=== PATIENT | male | born 1950 | race Caucasian/White ===

== ENCOUNTER → 2018-06-10 09:22 | Outpatient (CLI) | payer MEDICARE, SELFPAY | PROVIDERS: PCP Internal Medicine; Visit Provider Internal Medicine | DX: I20.9 Angina pectoris, unspecified (principal) | CPT/HCPCS: 93005 ==

== ENCOUNTER → 2018-06-14 12:14 | Outpatient (CLI) | payer MEDICARE, SELFPAY ==
--- NOTE | 2018-06-14 12:16 | CI_ITS ---
Cerebrovascular Exam Indications: 785.9 Bruit. IMPRESSIONS 1. Theleft vertebral arteryis patent with normal antegrade flow. 2. Study suggests less than 20% stenosis involving the right internal carotid artery and the left internal carotid artery. 3. Study suggests occlusion involving the right vertebral artery. 4. Study suggests >60% stenosis involving the right external carotid artery. Carotid duplex study. Complete study and Doppler flow study including spectral analysis, color and painter scale imaging. Height: Height: 180.3cm. Height: 71in. Weight: Weight: 94.3kg. Weight: 207.6lb. Body mass index: BMI: 29kg/m^2. Body surface area: BSA: 2.19m^2. Location: Vascular laboratory. Patient status: Outpatient. Tables: Arterial flow: + +--------+--------+ Location V sys V ed + +--------+--------+ Right CCA - proximal 75cm/s 26.5cm/s + +--------+--------+ Right CCA - distal 62.9cm/s 24.8cm/s + +--------+--------+ Right ECA 334cm/s -------- + +--------+--------+ Right ICA - proximal 82.1cm/s 20.1cm/s + +--------+--------+ Right ICA - mid 76.8cm/s 29.7cm/s + +--------+--------+ Right ICA - distal 70.7cm/s 33.2cm/s + +--------+--------+ Left CCA - proximal 97.6cm/s 29.8cm/s + +--------+--------+ Left CCA - distal 88.2cm/s 32cm/s + +--------+--------+ Left ECA 128cm/s -------- + +--------+--------+ Left ICA - proximal 72cm/s 31.9cm/s + +--------+--------+ Left ICA - mid 93cm/s 40.2cm/s + +--------+--------+ Left ICA - distal 73.3cm/s 32.7cm/s + +--------+--------+ Left vertebral 56.8cm/s -------- + +--------+--------+ Velocity ratios: + + + + + + Right, V sys Right, V ed Left, V sys Left, V ed + + + + + + Max ICA/dist CCA 1.31 1.34 1.05 1.26 + + + + + + (Report amended ) Electronically signed by: Vaibhav De La Fuente [id number]
== END ==
PROVIDERS: PCP Internal Medicine; Visit Provider Internal Medicine
DX: R09.89 Other specified symptoms and signs involving the circulatory and respiratory systems (principal)
CPT/HCPCS: 93880

== ENCOUNTER 2018-07-04 10:33 | Outpatient (RCR) | payer MEDICARE, SELFPAY | END 2018-07-04 10:34 | disposition home or self-care (01) | LOC: PT 10:33 | PROVIDERS: Family Provider Internal Medicine; PCP Internal Medicine; Visit Provider Internal Medicine | DX: Z95.5 Presence of coronary angioplasty implant and graft (principal) | CPT/HCPCS: 93798 ==

== ENCOUNTER → 2018-09-30 10:04 | Outpatient (CLI) | payer MEDICARE, SELFPAY ==
--- NOTE | 2018-09-30 10:06 | CA_ITS ---
PROCEDURE: 2-D M-mode and color Doppler study INDICATIONS FOR THE TEST: Chest pain COPD Heart Murmur Tobacco Smoking Palpitations Fatigue Syncope Edema Hypertension+Diabetes Mellitus Rheumatic Fever SOB LUND Obesity Hyperlipidemia+ Family History HD Additional History CAD,stents, carotid stenosis PATIENT INFORMATION HEIGHT: 71 WEIGHT:211 GENDER: Male B/P:125/79 2-D/M-MODE INTERPRETATION: 2-D MEASUREMENTS OBSERVED VALUES IN CMS Right Ventricular Dimension (RVDd) 2.2 Interventricular Septum (Thickness)(IVsd) 1.0 Left Ventricular Internal Dimensions(LVIDd) 4.8 Left Ventricular Posterior Wall (Thickness)(LVPWd) 1.0 Aortic Root 3.0 Aortic Cusp Separation 1.7 Left Atrial Dimensions (LAD) 3.6 2D 1. Left atrium is mildly enlarged, left ventricle is normal size, mild qualitative concentric left ventricular hypertrophy, visually estimated ejection fraction 55% with no regional wall motion abnormality. 2. The right atrium and right ventricle are normal size and contractility. 3. The aortic valve is minimally thickened and fibrosed. 4. The mitral and tricuspid valvular grossly normal. 5. The pulmonic valve is poorly visualized. 6. No significant pericardial effusion noted. DOPPLER INTERROGATION: Doppler interrogation of the aortic, mitral and tricuspid valvular presence of mild mitral and tricuspid regurgitation, tricuspid regurgitation jet velocity is inadequate for calculation of the right ventricular systolic pressure, grade 1 diastolic dysfunction seen without tissue Doppler evidence of raised left atrial pressure. CONCLUSION: 1. Mildly enlarged left atrium, normal left ventricular size, mild concentric left ventricular hypertrophy, visually estimated ejection fraction 55% with no regional wall motion abnormality, grade 1 diastolic dysfunction seen without tissue Doppler evidence of raised left atrial pressure. 2. Mild mitral and tricuspid regurgitation 3. No significant pericardial effusion noted.
== END ==
PROVIDERS: PCP Internal Medicine; Visit Provider Internal Medicine
DX: I25.10 Atherosclerotic heart disease of native coronary artery without angina pectoris (principal)
CPT/HCPCS: 93306

== ENCOUNTER → 2019-12-20 11:17 | Outpatient (CLI) | payer MEDICARE, SELFPAY ==
--- NOTE | 2019-12-20 | CA_ITS ---
APPROVED REPORT Exam: Pharmacologic Technologist: Angela Knutson Ht: 5 ft 11 in Wt: 190 lbs BSA: 2.06 m2 HR: 56 bpm BP: 121/74 mmHg Indications: Abnormal EKG, CAD Medical History Medications: Losartan,,,,, Atorvastatin,,,,, Ticagrelor,,,,, FOLIC ACID,,,,, Asprin,,,,, Stress Test Details Test: LEXISCAN HR Resting HR: 61 bpm Max Heart Rate (APMHR): 152 bpm Max HR Achieved: 98 bpm Target HR (85% APMHR): 129 bpm % of APMHR: 64 Recovery HR: 67 bpm BP Resting BP: 121.0/74.0 mmHg Max BP: 133.0/72.0 mmHg Recovery BP: 121.0/91.0 mmHg ECG Clinical Exercise duration: 04:00 min Highest Stage Achieved: Exercise capacity: 1.0 METs Stress ECG Conclusion Resting ECG: Sinus bradycardia, otherwise normal Symptoms: Mild malaise. No chest pain. Arrhythmias/Ectopy: None ST-T Changes: No significant changes. Conclusion: Unremarkable Lexiscan stress. Myoview images reported separately. Test Summary . . Myoview Injected . . . Stop exercise at 04:00 . . . . Electronically signed by : Karsten Nguyen, 12/21/2019 09:12:59
--- NOTE | 2019-12-20 11:23 | NM_ITS ---
APPROVED REPORT Exam: Nuclear Stress Test Indication: CAD, HTN, High cholesterol, Family history Patient Location: Outpatient Stress Tech: Angela Knutson [place] Tech:Megan Liao ARRT, RT (R)(N) Ht: 5 ft 11 in Wt: 190 lbs HR: 56 bpm BP: 121/74 mmHg BSA: 2.06 m2 BMI: 26.4 History: CAD, HTN, High cholesterol, Family history Procedure: Patient received a 0.4 mg of intravenous Lexiscan, resting heart rate 56 bpm, resting blood pressure 121/74 mmHg, with Lexiscan maximum heart rate achived was 95 bpm which is % of the maximum predicted heart rate and blood pressure was 133/72 mmHg. Cardiac Stress and Resting SPECT Images: Cardiac Stress and Resting SPECT images were obtained using technetium 99m Myoview 31.5 mCi stress and 10.59 mCi at rest. EF 54% Fixed defect noted in infero septal region suggesting area of infarction No reversible defects Conclusion: EF 54% Fixed defect noted in infero septal region suggesting area of infarction No reversible defects Electronically signed by : Vaibhav De La Fuente MD 12/21/2019 11:43:18
--- NOTE | 2019-12-20 13:08 | HMH.ITSHM ---
Current Home Medications as stated by this patient Sanjeev Buckley or advertising sales representative. []TICAGRELOR LOSARTAN FOLIC ACID ATORVASTATIN ASA
== END ==
PROVIDERS: PCP Internal Medicine; Visit Provider Urology
DX: Z01.810 Encounter for preprocedural cardiovascular examination; I11.9 Hypertensive heart disease without heart failure; I25.10 Atherosclerotic heart disease of native coronary artery without angina pectoris; I65.29 Occlusion and stenosis of unspecified carotid artery
CPT/HCPCS: 78452; 93017; 93306; A9502; J2785

== ENCOUNTER → 2020-02-23 08:35 | Outpatient (CLI) | payer MEDICARE, SELFPAY ==
--- NOTE | 2020-02-23 08:37 | CA_ITS ---
APPROVED REPORT Supervisor Travel Information Center: [place] Laterality: Bilateral Indications: edgardo Doppler Spectral Velocity Analysis ECA (R) 389.50/112.70 cm/s ECA (L) 108.50/23.20 cm/s dICA (R) 72.60/26.90 cm/s dICA (L) 83.90/36.40 cm/s Blayne (R) 77.10/27.70 cm/s Blayne (L) 75.90/33.10 cm/s pICA (R) 104.00/27.70 cm/s pICA (L) 71.60/29.90 cm/s dCCA (R) 54.60/22.50 cm/s dCCA (L) 77.80/23.90 cm/s pCCA (R) 78.00/22.30 cm/s pCCA (L) 114.50/34.40 cm/s ICA/CCA 1.90 Vert (L) 35.20/15.70 cm/s ICA/CCA 1.10 Findings Duplex evaluation demonstrates stenosis of the right proximal internal carotid artery <20% with PSV <140 cm/sec, EDV <100 cm/sec, and IC/CC Ratio <4.0 Duplex evaluation demonstrates stenosis of the left proximal internal carotid artery <20% with PSV <140 cm/sec, EDV <100 cm/sec, and IC/CC Ratio <4.0. Duplex evaluation demonstrates >60% stenosis of the right External Carotid Artery. Duplex evaluation demonstrates occlusion of the right Vertebral Artery. Left thyroid cyst noted Conclusion Duplex evaluation demonstrates stenosis of the right proximal internal carotid artery <20% with PSV <140 cm/sec, EDV <100 cm/sec, and IC/CC Ratio <4.0 Duplex evaluation demonstrates stenosis of the left proximal internal carotid artery <20% with PSV <140 cm/sec, EDV <100 cm/sec, and IC/CC Ratio <4.0. Duplex evaluation demonstrates occlusion of the right Vertebral Artery. Electronically signed by : Vaibhav De La Fuente MD 02/23/2020 17:11:04
== END ==
PROVIDERS: PCP Internal Medicine; Visit Provider Urology
DX: I65.29 Occlusion and stenosis of unspecified carotid artery (principal); R09.89 Other specified symptoms and signs involving the circulatory and respiratory systems
CPT/HCPCS: 93880

== ENCOUNTER → 2021-06-30 09:00 | Outpatient (CLI) | payer MEDICARE, SELFPAY | PROVIDERS: PCP Internal Medicine; Visit Provider Nurse Practitioner | DX: Z20.822 Contact with and (suspected) exposure to COVID-19 (principal) | CPT/HCPCS: C9803; U0003; U0005 ==

== ENCOUNTER → 2021-07-06 02:49 | Outpatient (CLI) | payer MEDICARE, SELFPAY ==
[2021-07-06 03:27] LABS: Influenza A, PCR Not Detected (NotDetected); Influenza B, PCR Not Detected (NotDetected)
[2021-07-06 03:52] LABS: Coronavirus 19, PCR Detected (NotDetected)
== END ==
PROVIDERS: Visit Provider Emergency Medicine
DX: Z20.822 Contact with and (suspected) exposure to COVID-19 (principal); U07.1 COVID-19
CPT/HCPCS: C9803; U0003; U0005

== ENCOUNTER → 2021-07-08 15:59 | Outpatient (CLI) | payer MEDICARE, SELFPAY ==
[2021-07-08 14:15] VITALS: BP 113/74; PULSE 60; RESP 18; TEMP 36.4; O2SAT 93
[2021-07-08 14:30] VITALS: BP 111/70; PULSE 57; RESP 18; TEMP 36.3; O2SAT 96
[2021-07-08 14:45] VITALS: BP 122/71; PULSE 54; RESP 18; O2SAT 94
[2021-07-08 14:59] VITALS: BP 114/72; PULSE 58; RESP 18; TEMP 36.5; O2SAT 94
[2021-07-08 15:15] VITALS: BP 131/69; PULSE 60; RESP 18; TEMP 36.4; O2SAT 95
[2021-07-08 15:26] VITALS: BP 113/68; PULSE 57; RESP 18; TEMP 36.4; O2SAT 95
== END ==
PROVIDERS: PCP Internal Medicine; Visit Provider Internal Medicine
DX: U07.1 COVID-19 (principal)
CPT/HCPCS: 96365

== ENCOUNTER → 2022-02-19 12:36 | Outpatient (CLI) | payer MEDICARE, SELFPAY ==
--- NOTE | 2022-02-19 13:05 | CA_ITS ---
FINAL REPORT TECHNIQUE: Color Doppler, duplex Doppler and painter scale sonography of the bilateral neck vasculature was performed. Velocities were measured in the carotid arteries. Stenosis evaluation based on velocity criteria. CLINICAL HISTORY: RT CARTOID BRUIT,LUKE FINDINGS: The peak systolic velocity of the right common carotid artery is 76 cm/sec and internal carotid artery 94 cm/sec. The diastolic velocity in the internal carotid artery is 29 cm/sec. The ICA/CCA ratio is 1.5. Visually, a small to moderate amount of plaque is seen. These findings are consistent with less than 50% stenosis. The external carotid artery is patent. The right vertebral artery is patent with antegrade flow. The peak systolic velocity of the left common carotid artery is 91 cm/sec and internal carotid artery 93 cm/sec. The diastolic velocity in the internal carotid artery is 35 cm/sec. The ICA/CCA ratio is 1.2. Visually, a small to moderate amount of plaque is seen. These findings are consistent with less than 50% stenosis. The external carotid artery is patent. The left vertebral artery is patent with antegrade flow. IMPRESSION: Less than 50% bilateral carotid stenosis. Bilateral patent vertebral arteries. If indicated, CTA or MRA could further evaluate. Reviewed, Interpreted and Dictated by Sanjeev Burks III, MD Transcribed by Mehrdad Traylor Authenticated by Sanjeev Burks III, MD on 02/19/2022 02:51:52 PM [facility]
== END ==
PROVIDERS: PCP Internal Medicine; Visit Provider Nurse Practitioner Family
DX: I11.9 Hypertensive heart disease without heart failure; I25.10 Atherosclerotic heart disease of native coronary artery without angina pectoris; I65.23 Occlusion and stenosis of bilateral carotid arteries
CPT/HCPCS: 93880

== ENCOUNTER → 2022-08-03 09:36 | Outpatient (CLI) | payer MEDICARE, SELFPAY ==
[2022-08-03 17:44] LABS: Basophils # 0.1 K/mm3 (0-0.2); Eosinophils # 0.2 K/mm3 (0.0-0.4); Eosinophils % 2.3 % (0.1-12.0); Hematocrit 46.6 % (42.0-52.0); Hemoglobin 14.8 g/dL (14.1-18.0); Lymphocytes # 1.6 K/mm3 (0.7-4.5); Lymphocytes % 23.2 % (10-50); Mean Corpuscular HGB Conc 31.8 g/dL (31.8-35.4); Mean Corpuscular Hemoglobin 29.9 pg (27.0-31.2); Mean Corpuscular Volume 94.2 fl (80-94); Mean Platelet Volume 9.3 fl (7.4-10.4); Monocytes # 0.4 K/mm3 (0.1-1.0); Monocytes % 6.4 % (1.7-9.3); Neutrophils # 4.7 K/mm3 (1.8-7.8); Neutrophils % 67.1 % (37.0-80.0); Platelet Count 194 K/mm3 (142-424); Red Blood Count 4.95 M/mm3 (4.60-6.20); Red Cell Distribution Width 13.3 % (11.5-17.5); White Blood Count 6.9 K/mm3 (4.8-10.8)
[2022-08-03 18:27] LABS: Alanine Aminotransferase 25 U/L (12-78); Albumin/Globulin Ratio 1.7 (1.1-1.8); Alkaline Phosphatase 63 U/L (38-126); Anion Gap 14.7 mEq/L (5-15); Aspartate Amino Transferase 25 U/L (17-59); Bilirubin,Direct 0.2 mg/dl (0.0-0.4); Bilirubin,Indirect 0.4 mg/dL (0.0-0.9); Bilirubin,Total 0.6 mg/dl (0.2-1.3); Blood Urea Nitrogen 12 mg/dl (9-20); Calcium 8.5 mg/dl (8.4-10.2); Carbon Dioxide 30 mmol/L (22.0-30.0); Chloride 99 mmol/L (98-107); Estimated Glomerular Filt Rate 83 ml/min (>60); GFR (African American) 101 ML/MIN (>60); Globulin 2.4 g/dL (1.3-3.2); Glucose 95 mg/dl (74-100); Hemoglobin A1C 6.5 % (4.0-6.0); Potassium 4.7 mmoL/L (3.5-5.1); Sodium 139 mmol/L (136-145); Total Protein,Serum 6.4 g/dl (6.3-8.2)
[2022-08-03 18:58] LABS: Prostate Specific Ag Screen 2.1 ng/ml (0.0-4.0)
[2022-08-04 09:50] LABS: Chol/HDL Ratio 2.9 (1-3.5); Cholesterol 124 mg/dl (140-200); HDL Cholesterol 43 mg/dl (40-60); Triglycerides 81 mg/dl (30-150); VLDL Cholesterol 16 mg/dL (0-40)
[2022-08-04 10:01] LABS: Direct LDL Cholesterol 67.27 mg/dL (100-129)
== END ==
PROVIDERS: PCP Internal Medicine; Visit Provider Internal Medicine
DX: I25.10 Atherosclerotic heart disease of native coronary artery without angina pectoris (principal); I10 Essential (primary) hypertension; E78.5 Hyperlipidemia, unspecified; E11.59 Type 2 diabetes mellitus with other circulatory complications; N40.1 Benign prostatic hyperplasia with lower urinary tract symptoms; Z12.5 Encounter for screening for malignant neoplasm of prostate
CPT/HCPCS: 80053; 80061; 80076; 82248; 83036; 85025; G0103

== ENCOUNTER → 2023-03-02 11:28 | Outpatient (CLI) | payer MEDICARE, SELFPAY ==
[2023-03-02 14:34] LABS: Hemoglobin A1C 6.6 % (4.0-6.0)
[2023-03-02 14:35] LABS: Alanine Aminotransferase 23 U/L (12-78); Albumin Level 4.1 g/dl (3.5-5.0); Albumin/Globulin Ratio 1.9 (1.1-1.8); Alkaline Phosphatase 58 U/L (38-126); Anion Gap 17.5 mEq/L (5-15); Aspartate Amino Transferase 27 U/L (17-59); Bilirubin,Total 0.9 mg/dl (0.2-1.3); Blood Urea Nitrogen 11 mg/dl (9-20); Calcium 8.4 mg/dl (8.4-10.2); Carbon Dioxide 28 mmol/L (22.0-30.0); Chloride 96 mmol/L (98-107); Chol/HDL Ratio 2.5 (1-3.5); Cholesterol 112 mg/dl (140-200); Estimated Glomerular Filt Rate 83 ml/min (>60); GFR (African American) 100 ML/MIN (>60); Globulin 2.2 g/dL (1.3-3.2); Glucose 132 mg/dl (74-100); HDL Cholesterol 44 mg/dl (40-60); Potassium 4.5 mmoL/L (3.5-5.1); Sodium 137 mmol/L (136-145); Total Protein,Serum 6.3 g/dl (6.3-8.2); Triglycerides 63 mg/dl (30-150); VLDL Cholesterol 13 mg/dL (0-40)
[2023-03-02 14:48] LABS: Direct LDL Cholesterol 62.73 mg/dL (100-129)
[2023-03-02 15:38] LABS: Microalbumin/Creatinine Ratio 4.7
[2023-03-02 15:45] LABS: Creatinine,Urine Random 142 mg/dL (Not Estab.)
== END ==
PROVIDERS: PCP Internal Medicine; Visit Provider Internal Medicine
DX: E11.59 Type 2 diabetes mellitus with other circulatory complications (principal); I25.10 Atherosclerotic heart disease of native coronary artery without angina pectoris; E78.5 Hyperlipidemia, unspecified; I10 Essential (primary) hypertension
CPT/HCPCS: 80053; 80061; 82043; 82570; 83036

== ENCOUNTER 2023-08-03 10:28 | Day surgery (SDC) | payer MEDICARE, SELFPAY ==
[2023-08-02 13:47] VITALS: BMI 27.7
[2023-08-03 10:49] VITALS: BP 150/77; PULSE 64; RESP 18; TEMP 36.1; O2SAT 95
--- NOTE | 2023-08-03 10:59 | P.PNANES_ITS ---
[facility] Disclaimer: The information contained in this section may have been updated after the patient was seen, as this information can be updated by other users. Medical History Abnormal cardiovascular stress test Enlarged prostate HHD (hypertensive heart disease) History of COVID-19 Hyperlipidemia Hypertension Surgical History History of hip replacement History of surgery S/P hernia surgery Family History Other Family history of hyperlipidemia Family history of hypertension Family history of myocardial infarction No significant family history Social History Smoking Status: Never smoker second hand exposure: Yes alcohol intake: never substance use type: denies use current occupational status: retired Travel in the last 8 weeks: None household members: spouse housing: house current occupational exposures/hazards: No caffeine: No H Anesthesia Checklist Patient Identification Patient Identification: Arm Band and Verbal (Name & ) Structural Data Admitted From: Home Planned Operative Procedure/s: Colonoscopy Consent for Planned Operative Procedure(s) Verified: Yes NPO Status Verified Time NPO: 00:00 Chart Verification Results Verified: CBC Additional verifications Anesthesia Reactions: No Airway Assessment Mallampati Score:: Class I C-Spine Mobility Assessed: Yes TMJ Mobility Assessed: Yes Dentition: Good Dentition Neurological Assessment Level of Consciousness: Awake Hx Seizures: No Numbness or tingling in extremities: No Anesthesia Plan Anesthesia Risk discussed: Yes Anesthesia Plan: Verified ASA Class: II Anesthesia Type: MAC
[2023-08-03 11:26] VITALS: O2SAT 95
[2023-08-03 12:00] VITALS: BP 93/62; PULSE 78; RESP 16; TEMP 36.1; O2SAT 95
--- NOTE | 2023-08-03 12:01 | HMH.SCOPE ---
Procedure: Date: 08/03/23 Patient Date of :: 1950 Procedure Performed:: Colonoscopy with polypectomy Indications:: Screening Performing Provider:: David Arroyo MD Referring Provider:: . Sedation:: Monitored anesthesia care Procedure:: After informed consent was obtained the patient was taken to the endoscopy suite. Sedation ensued after the patient was transferred to the left lateral decubitus position. Pulse, blood pressure, and oxygen saturation were monitored throughout the procedure. Digital rectal exam revealed no significant abnormality. The colonoscope was placed in position. The entire colon was evaluated. The colonoscope was carefully removed and the patient was transferred to recovery in stable condition. Please see findings and specimens below for detail. Findings:: Bowel preparation fair Moderate spasticity/tortuosity Sigmoid diverticulosis Lobulated cecal polyp Specimens:: Lobulated cecal polyp (cold biopsy forceps) Recommendations:: Timing of repeat colonoscopy is pending pathology but will likely be around 3 years secondary to above findings. Complications:: No immediate Estimated blood obtained (mL): 1 Colonoscopy Component Colonoscopy Component Was a colonoscopy performed during today's procedure?: Yes Recommended follow up colonoscopy of at least 10 years?: No If no, follow up colonoscopy recommended in ___ years?: (See above) Reason for not recommending >/= 10 yr follow-up interval?: (See above)
[2023-08-03 12:10] VITALS: BP 99/61; PULSE 74; RESP 16; O2SAT 95
[2023-08-03 12:20] VITALS: BP 113/61; PULSE 60; RESP 18; O2SAT 96
[2023-08-03 12:30] VITALS: BP 113/70; PULSE 55; RESP 18; O2SAT 96
== END 2023-08-03 12:30 | disposition home or self-care (01) ==
PROVIDERS: PCP Internal Medicine; Visit Provider Surgery
PROC: 0DJD8ZZ Inspection of Lower Intestinal Tract, Via Natural or Artificial Opening Endoscopic (ICD-10-PCS; CPT 45380; principal; 2023-08-03 11:30)
DX: Z12.11 Encounter for screening for malignant neoplasm of colon (principal); K56.2 Volvulus; K57.30 Diverticulosis of large intestine without perforation or abscess without bleeding; D12.0 Benign neoplasm of cecum
CPT/HCPCS: 45380; 88305; J2704

== ENCOUNTER → 2023-09-08 07:47 | Outpatient (CLI) | payer MEDICARE, SELFPAY ==
[2023-09-08 08:55] LABS: Basophils % 0.5 % (0.1-2.0); Eosinophils # 0.1 K/mm3 (0.0-0.4); Eosinophils % 1.9 % (0.1-12.0); Hematocrit 45.4 % (42.0-52.0); Hemoglobin 15.1 g/dL (14.1-18.0); Lymphocytes # 0.7 K/mm3 (0.7-4.5); Lymphocytes % 9.3 % (10-50); Mean Corpuscular HGB Conc 33.4 g/dL (31.8-35.4); Mean Corpuscular Hemoglobin 31.1 pg (27.0-31.2); Mean Corpuscular Volume 93.2 fl (80-94); Mean Platelet Volume 8.8 fl (7.4-10.4); Monocytes # 0.5 K/mm3 (0.1-1.0); Monocytes % 7.2 % (1.7-9.3); Neutrophils % 81.1 % (37.0-80.0); Platelet Count 129 K/mm3 (142-424); Red Blood Count 4.87 M/mm3 (4.60-6.20); Red Cell Distribution Width 12.9 % (11.5-17.5); White Blood Count 7.4 K/mm3 (4.8-10.8)
[2023-09-08 09:29] LABS: Alanine Aminotransferase 21 U/L (12-78); Albumin Level 4.2 g/dl (3.5-5.0); Albumin/Globulin Ratio 1.7 (1.1-1.8); Alkaline Phosphatase 66 U/L (38-126); Anion Gap 11.5 mEq/L (5-15); Aspartate Amino Transferase 26 U/L (17-59); Bilirubin,Total 0.8 mg/dl (0.2-1.3); Blood Urea Nitrogen 14 mg/dl (9-20); Calcium 8.5 mg/dl (8.4-10.2); Carbon Dioxide 29 mmol/L (22.0-30.0); Chloride 101 mmol/L (98-107); Chol/HDL Ratio 2.7 (1-3.5); Cholesterol 119 mg/dl (140-200); Estimated Glomerular Filt Rate 83 ml/min (>60); GFR (African American) 100 ML/MIN (>60); Globulin 2.5 g/dL (1.3-3.2); Glucose 124 mg/dl (74-100); HDL Cholesterol 44 mg/dl (40-60); Potassium 4.5 mmoL/L (3.5-5.1); Sodium 137 mmol/L (136-145); Total Protein,Serum 6.7 g/dl (6.3-8.2); Triglycerides 65 mg/dl (30-150); VLDL Cholesterol 13 mg/dL (0-40)
[2023-09-08 09:34] LABS: Erythrocyte Sedimentation Rate 5 mm/hr (0-20)
[2023-09-08 09:46] LABS: Direct LDL Cholesterol 72.89 mg/dL (100-129)
[2023-09-08 09:54] LABS: Hemoglobin A1C 6.7 % (4.0-6.0)
[2023-09-08 10:02] LABS: Prostate Specific Ag Screen 2.7 ng/ml (0.0-4.0); Thyroid Stimulating Hormone 1.38 uIU/mL (0.465-4.68)
[2023-09-08 10:37] LABS: Vitamin B12 435 pg/mL (239-931)
== END ==
PROVIDERS: PCP Internal Medicine; Visit Provider Internal Medicine
DX: E11.59 Type 2 diabetes mellitus with other circulatory complications (principal); Z12.5 Encounter for screening for malignant neoplasm of prostate; I25.10 Atherosclerotic heart disease of native coronary artery without angina pectoris; I11.9 Hypertensive heart disease without heart failure; E78.5 Hyperlipidemia, unspecified; R41.3 Other amnesia
CPT/HCPCS: 36415; 80053; 80061; 82607; 82746; 83036; 84443; 85025; 85651; G0103

== ENCOUNTER → 2023-09-28 10:19 | Outpatient (CLI) | payer MEDICARE, SELFPAY ==
--- NOTE | 2023-09-28 | CA_ITS ---
FINAL REPORT TECHNIQUE: Real-time imaging was performed of the extracranial carotid arteries in transverse and longitudinal planes, with color duplex evaluation of blood flow velocity. Spectral analysis was performed. The cervical vertebral arteries were also examined. CLINICAL HISTORY: Bilatertal bruits, CAD, memory loss COMPARISON: None FINDINGS: NASCET technique is utilized for stenosis evaluation. Right carotid system (centimeters/second): CCA: 58 ICA: 91 ECA: 337 Vertebral artery: Antegrade ICA/CCA ratio: 1.6 Mild to moderate plaque is identified at the bifurcation. Left carotid system (centimeters/second): CCA: 99 ICA: 95 ECA: 155 Vertebral artery: Antegrade ICA/CCA ratio: 1 Mild to moderate plaque is identified at the bifurcation. IMPRESSION: Less than 50% right ICA stenosis. Less than 50% left ICA stenosis. Antegrade flow bilateral vertebral arteries. Reviewed, Interpreted and Dictated by Malachi Paulson MD Transcribed by Taty Herzog Authenticated and . [facility]
== END ==
PROVIDERS: PCP Internal Medicine; Visit Provider Internal Medicine
DX: R09.89 Other specified symptoms and signs involving the circulatory and respiratory systems (principal)
CPT/HCPCS: 93880

== ENCOUNTER 2023-11-16 10:40 | Outpatient (CLI) | payer MEDICARE, OTHER, SELFPAY ==
--- NOTE | 2023-11-16 10:53 | CT_ITS ---
FINAL REPORT TECHNIQUE: Axial imaging of the head was obtained without contrast. This study was performed with techniques to keep radiation doses as low as reasonably achievable, (ALARA). Individualized dose reduction techniques using automated exposure control or adjustment of mA and/or kV according to the patient''s size were employed. CLINICAL HISTORY: MEMORY LOSS FINDINGS: The ventricles are normal in size. There is no evidence of hemorrhage. No masses are identified. No extra-axial fluid is seen. The sinuses are normal. There is no acute osseous abnormality. IMPRESSION: No acute intracranial abnormality. Reviewed, Interpreted and Dictated by Milly Jones MD Transcribed by Mehrdad Traylor Authenticated and [facility]
== END 2023-11-16 23:59 ==
LOC: RAD 10:42
PROVIDERS: PCP Internal Medicine; Visit Provider Internal Medicine
DX: R41.3 Other amnesia (principal)
CPT/HCPCS: 70450

== ENCOUNTER 2024-01-10 16:01 | Outpatient (CLI) | payer MEDICARE, OTHER, SELFPAY ==
--- NOTE | 2024-01-10 16:02 | MR_ITS ---
FINAL REPORT CLINICAL HISTORY: memory loss. FINDINGS: Multi planar MR imaging was obtained through the brain without contrast. The midline structures appear intact. There is no evidence of Chiari malformation. There is mild to moderate diffuse cortical atrophy. There are minimal changes of chronic microvascular ischemia. On diffusion-weighted images there is no evidence of restricted diffusion. There is mild lobular mucoperiosteal thickening in both maxillary sinuses. The seventh and eighth nerve root complexes are intact. IMPRESSION: Minimal changes of chronic microvascular ischemia. Chronic maxillary sinusitis. Reviewed, Interpreted and Dictated by Malachi Paulson MD Transcribed by Cat Wilburn Authenticated and [facility]
== END 2024-01-10 23:59 ==
LOC: RAD 16:02
PROVIDERS: PCP Internal Medicine; Visit Provider Nurse Practitioner Family
DX: R41.3 Other amnesia (principal); Z81.8 Family history of other mental and behavioral disorders; D69.6 Thrombocytopenia, unspecified
CPT/HCPCS: 70551

== ENCOUNTER 2024-02-11 07:00 | Outpatient (CLI) | payer MEDICARE, OTHER, SELFPAY ==
[2024-02-11 07:18] LABS: Basophils # 0.1 K/mm3 (0-0.2); Basophils % 0.9 % (0.1-2.0); Eosinophils # 0.2 K/mm3 (0.0-0.4); Eosinophils % 2.8 % (0.1-12.0); Hematocrit 44.8 % (42.0-52.0); Hemoglobin 14.5 g/dL (14.1-18.0); Lymphocytes # 1.6 K/mm3 (0.7-4.5); Mean Corpuscular HGB Conc 32.4 g/dL (31.8-35.4); Mean Corpuscular Hemoglobin 30.2 pg (27.0-31.2); Mean Corpuscular Volume 93.2 fl (80-94); Mean Platelet Volume 8.5 fl (7.4-10.4); Monocytes # 0.8 K/mm3 (0.1-1.0); Monocytes % 12.5 % (1.7-9.3); Neutrophils # 3.8 K/mm3 (1.8-7.8); Neutrophils % 58.8 % (37.0-80.0); Platelet Count 171 K/mm3 (142-424); Red Blood Count 4.81 M/mm3 (4.60-6.20); Red Cell Distribution Width 13.5 % (11.5-17.5); White Blood Count 6.5 K/mm3 (4.8-10.8)
[2024-02-12 13:28] LABS: Rapid Plasma Reagin Ab Titer Non Reactive titer (NonRea<1:1)
[2024-02-14 15:04] LABS: Anti-Centromere B Antibodies <0.2 AI (0.0-0.9); Anti-DNA (DS) Ab Qn <1 IU/mL (0-9); Anti-Jo-1 <0.2 AI (0.0-0.9); Antichromatin Antibodies <0.2 AI (0.0-0.9); Antiscleroderma-70 Antibodies <0.2 AI (0.0-0.9); RNP Antibodies 1.1 AI (0.0-0.9); Sjogren's Anti-SS-A <0.2 AI (0.0-0.9); Sjogren's Anti-SS-B <0.2 AI (0.0-0.9)
[2024-02-15 08:38] LABS: Anti-Centromere B Abs Charge YES; Anti-DNA (DS) Ab Charge YES; Anti-Jo-1 Charge YES; Antichromatin Abs Charge YES; Antinuclear Antibodies (ANA) Positive; Antiscleroderma-70 Abs Charge YES; RNP Antibodies Charge YES; Sjogren's Anti-SS-A Ab Charge YES; Sjogren's Anti-SS-B Ab Charge YES; Smith Antibodies Charge YES
== END 2024-02-11 23:59 | disposition home or self-care (01) ==
LOC: LAB 07:01
PROVIDERS: PCP Internal Medicine; Visit Provider Nurse Practitioner Family
DX: D69.6 Thrombocytopenia, unspecified (principal); R41.3 Other amnesia; Z81.8 Family history of other mental and behavioral disorders
CPT/HCPCS: 36415; 85025; 86038; 86225; 86235; 86593

== ENCOUNTER → 2024-03-03 10:13 | Outpatient (CLI) | payer MEDICARE, OTHER, SELFPAY | PROVIDERS: PCP Internal Medicine; Visit Provider Specialist | DX: G47.33 Obstructive sleep apnea (adult) (pediatric) (principal); G47.36 Sleep related hypoventilation in conditions classified elsewhere | CPT/HCPCS: G0399 ==

== ENCOUNTER 2024-05-04 15:28 | Outpatient (CLI) | payer MEDICARE, OTHER, SELFPAY ==
[2024-05-13 08:46] LABS: Miscellaneous Test SCANNED IMAGE
== END 2024-05-04 23:59 | disposition home or self-care (01) ==
LOC: LAB 15:30
PROVIDERS: PCP Internal Medicine; Visit Provider Physician Assistant
DX: G31.84 Mild cognitive impairment of uncertain or unknown etiology (principal)
CPT/HCPCS: 36415

== ENCOUNTER 2024-05-11 08:49 | Outpatient (CLI) | payer MEDICARE, OTHER, SELFPAY ==
[2024-05-11 09:22] LABS: Creatinine,Urine Random 139 mg/dL (Not Estab.)
[2024-05-11 09:27] LABS: Microalbumin < 6.000 mg/L (0-16.7)
[2024-05-11 09:36] LABS: Hemoglobin A1C 6.4 % (4.0-6.0)
[2024-05-11 09:41] LABS: Alanine Aminotransferase 23 U/L (12-78); Albumin Level 4.1 g/dl (3.5-5.0); Albumin/Globulin Ratio 1.5 (1.1-1.8); Alkaline Phosphatase 52 U/L (38-126); Anion Gap 9.5 mEq/L (5-15); Aspartate Amino Transferase 25 U/L (17-59); Bilirubin,Total 0.5 mg/dl (0.2-1.3); Blood Urea Nitrogen 13 mg/dl (9-20); Calcium 9.5 mg/dl (8.4-10.2); Carbon Dioxide 30 mmol/L (22.0-30.0); Chloride 104 mmol/L (98-107); Cholesterol 148 mg/dl (140-200); Estimated Glomerular Filt Rate 73 ml/min (>60); GFR (African American) 89 ML/MIN (>60); Globulin 2.7 g/dL (1.3-3.2); Glucose 132 mg/dl (74-100); HDL Cholesterol 50 mg/dl (40-60); Potassium 4.5 mmoL/L (3.5-5.1); Sodium 139 mmol/L (136-145); Total Protein,Serum 6.8 g/dl (6.3-8.2); Triglycerides 59 mg/dl (30-150); VLDL Cholesterol 12 mg/dL (0-40)
[2024-05-11 09:43] LABS: Alanine Aminotransferase 23 U/L (12-78); Alkaline Phosphatase 51 U/L (38-126); Aspartate Amino Transferase 26 U/L (17-59); Bilirubin,Indirect 0.5 mg/dL (0.0-0.9); Bilirubin,Total 0.5 mg/dl (0.2-1.3); Bilirubin,Unconjugated 0.7 mg/dL (0.0-1.1); Total Protein,Serum 6.7 g/dl (6.3-8.2)
[2024-05-11 09:53] LABS: Direct LDL Cholesterol 74.93 mg/dL (100-129)
[2024-05-11 09:58] LABS: Free T4 (Free Thyroxine) 1.11 ng/dl (0.78-2.19)
[2024-05-11 10:11] LABS: Thyroid Stimulating Hormone 1.92 uIU/mL (0.465-4.68)
== END 2024-05-11 23:59 | disposition home or self-care (01) ==
LOC: LAB 08:50
PROVIDERS: Physician Assistant; PCP Internal Medicine; Visit Provider Internal Medicine
DX: I65.23 Occlusion and stenosis of bilateral carotid arteries; I25.10 Atherosclerotic heart disease of native coronary artery without angina pectoris; I11.9 Hypertensive heart disease without heart failure; E11.59 Type 2 diabetes mellitus with other circulatory complications; E78.5 Hyperlipidemia, unspecified
CPT/HCPCS: 36415; 80053; 80061; 80076; 82043; 82570; 83036; 84439; 84443

== ENCOUNTER → 2025-06-13 06:38 | Outpatient (CLI) | payer MEDICARE, OTHER, SELFPAY ==
--- OUTSIDE RECORDS SUMMARY | 2025-04-26 09:00 | XMS_ITS | Encounter Summary ---
Author Organization [facility] Address [address] [place] [address] Care Team Providers Care Children'S Literature Professor Name Role Phone Wallace Garcia MD Primary Care Provider [phone] Marianne Monroy RN Unavailable Unavailable Encounter Details Date Type Department Care Team (Late st Contact Info) Description 04/26/2025 9:00 AM EDT Telemedicine [facility] Neurology [address] [place] [address] [phone] Antoinette Gonzales PA-C [address] [facility] [place] [address] [place] [address] [phone] Mild cognitive impairment (Primary Dx) Social History Tobacco Use Types Packs/Day Years Used Date Smoking Tobacco: Never Smokeless Tobacco: Never Alcohol Use Standard Drinks/Week Comments Never 0 (1 standard drink = 0.6 oz pur e alcohol) Sex and Gender Information Value Date Recorded Sex Assigned at Not on file Legal Sex Male 11:31 AM EDT Gender Identity Not on file Sexual Orientation Not on file documented as of this encounter Functional Status * Are You Deaf or do You Have Serious Difficulty Hearing? Answer Date of Assessment Author No 11/09/2024 2:14 PM Diana Olivares, TOD * Patient's Vision Adequate to Safely Complete Daily Activities Answer Date of Assessment Author Yes 11/09/2024 2:14 PM Diana Olivares RN * Do You Have Serious Difficulty Walking or Climbing Stairs? Answer Date of Assessment Author No 11/09/2024 2:14 PM Diana Olivares RN * Do You Have Difficulty Dressing or Bathing? Answer Date of Assessment Author No 11/09/2024 2:14 PM Diana Olivares RN * Because of a Physical, Mental, or Emotional Condition, Do You Have Serious Difficulty Concentrating, Remembering or Making a Decision? Answer Date of Assessment Author No 11/09/2024 2:14 PM Diana Olivares RN documented as of this encounter Mental Status * Because of a Physical, Mental or Emotional Problem, Do You Have Difficulty Doing Errands Alone Suchas Visiting a Doctor's Office or Shopping? Answer Entry Date Author No 11/09/2024 2:14 PM Diana Olivares RN documented in this encounter Progress Notes * Antoinette Gonzales PA-C - 04/26/2025 9:08 AM EDT Images from the original note were not included. [facility] [address], [address] [place] [address] 04/26/2025 NEUROLOGY CONSULTATION VISIT CC Follow up HISTORY OF PRESENT ILLNESS Sanjeev Buckley is a 75 yr/o male who returns to clinic for evaluation of cognitive impairment. He hasnoted symptoms since at least 2020 when he began having difficulty playing bridge. Over time he hashad more symptoms of forgetfulness and repetitiveness, along with impairments in visuospatial orientation and executive function. There are not impairments in his ADL's. Prior evaluation: Brain MRI (01/10/24)-minimal chronic microvascular changes B12/Folate/TSH-normal by report [facility] testing reportedly c/w MCI (12/30/23) ApoE ([facility], [facility])=3/4 CSF ([facility], 04/24/24)-c/w AD pathology Current treatment: Donepezil 5mg Memantine 10mg daily (higher dose potentially cause GI upset) Lecanumab Today: Since his last evaluation in 11/11, he feels largely unchanged. His has noted a bit of cognitive decline. He continues to manage his medications independently. He is tolerating lecanumab well. FAMILY HISTORY His older brother and sister have a history of AD. SOCIAL HISTORY He is residing with his in [facility]. He is retired. He previously worked as a sheet metal worker helper. Tobacco Use History[1] Social History Substance and Sexual Activity Alcohol Use Never EXAM Neurological Exam Mental Status Alert. Speech is normal. Mental Status: Level of consciousness: alert Speech: normal Comprehension: Normal. He is oriented to:date, day, month , year, and season. He is oriented to:city, county, state, place, and floor. Registration: recalls 3 of 3 objects. Recall at 5 minutes: recalls 2 of 3 objects. Attention: normal Follows 3/3 steps correctly. Names 2 out of 2 objects correctly. He isable to read. He is able to repeat. He is able to write. He is able to copy pentagons. MMSE= 29 (27 in 11/11) ASSESSMENT Diagnoses and all orders for this visit: Mild cognitive impairment Mr. Buckley returns to clinic for evaluation of Mild Cognitive Impairment. This was discussed in detail. I again reviewed his current status and treatment options. After discussing potential treatment options, it was elected to continue on his current treatment regimen unchanged. He will then follow up in 6 months , or sooner if needed. As part of this visit I obtained history from the patient and his family. A total of 30 minutes was spend performing chart review , review of history from family, review of prior visits, and bedside cognitive testing, counseling and discussion of diagnosis, prognosis, evaluation, treatment options, goals of care, and potential treatment side effects. Antoinette Gonzales PA-C [1] Social History Tobacco Use Smoking Status Never Smokeless Tobacco Never documented in this encounter Plan of Treatment Upcoming Encounters Date Type Department Care Team (Late st Contact Info) Description 06/21/2025 3:00 PM EDT Infusion [facility] [address] [place] [phone] Antoinette Gonzales PA-C [address] [facility] [place], [place] [phone] 07/05/2025 3:30 PM EDT Infusion [facility] [address] [place] [phone] Antoinette Gonzales PA-C [address] [place] [address] [place] [address] [phone] 07/19/2025 2:30 PM EDT Infusion [address] [phone] Antoinette Gonzales PA-C [address] [place] [address] [phone] 08/02/2025 1:30 PM EDT Infusion [address] [phone] Antoinette Gonzales PA-C [address] [place] [address] [phone] 08/16/2025 2:30 PM EDT Infusion [address] [phone] Antoinette Gonzales PA-C [address] [place] [address] [phone] 08/30/2025 2:30 PM EST Infusion [address] [phone] Antoinette Gonzales PA-C [address] [place] [address] [phone] 09/27/2025 2:30 PM EST Infusion [address] [phone] 10/25/2025 12:30 PM EST Office Visit [facility] Neurology [address] [place] [address] [phone] Antoinette Gonzales PA-C [address] [facility] [address] [place], [place] [phone] 10/25/2025 2:30 PM EST Infusion [address] [phone] 11/08/2025 2:30 PM EST Infusion [address] [phone] 11/22/2025 2:30 PM EST Infusion [address] [phone] 12/06/2025 2:30 PM EST Infusion [address] [phone] 12/20/2025 2:30 PM EST Infusion [address] [phone] 01/03/2026 2:30 PM EDT Infusion [address] [phone] 01/17/2026 2:30 PM EDT Infusion [address] [phone] 01/31/2026 2:30 PM EDT Infusion [address] [phone] 02/14/2026 2:30 PM EDT Infusion [address] [phone] 02/28/2026 2:30 PM EDT Infusion [address] [phone] 03/14/2026 2:30 PM EDT Infusion [facility] [address] [place] [phone] 03/28/2026 2:30 PM EDT Infusion [facility] [address] [place] [phone] 04/11/2026 2:30 PM EDT Infusion [facility] [address] [place] [phone] 04/25/2026 2:30 PM EDT Infusion [facility] [address] [place] [phone] documented as of this encounter Visit Diagnoses Diagnosis Mild cognitive impairment- Primary Mild cognitive impairment, so stated documented in this encounter Care Teams Children'S Literature Professor Relationship Specialty Start Date End Date Wallace Garcia MD [address] [place] [address] [facility] [place] [address] PCP - General Internal Medicine 04/11/24 Marianne Monroy, RN Nurse Navigator Neurology 07/24/24 documented as of this encounter
--- OUTSIDE RECORDS SUMMARY | 2025-04-26 09:30 | XMS_ITS | Encounter Summary ---
Author Organization [facility] Address [address] [place] [address] Care Team Providers Care Director Of Clinical Trials Name Role Phone Wallace Garcia MD Primary Care Provider [phone] Marianne Monroy RN Unavailable Unavailable Reason for Visit * Reason Comments Infusion * Episode Based Medications (Routine) - Authorized Specialty Diagnoses / Procedures Referred By Contac t Referred To Contact Diagnoses Mild cognitive impairment Procedures [place] INJ, LECANEMAB-IRMB, 1 MG Antoinette Gonzales PA-C 3[address] [facility] [address] [place] [address] Phone: tel: fax: [address] [address] Phone: tel: Referral ID Status Reason Start Date Expiration Date V isits Requested Visits Authorized [id number] Authorized 07/24/2024 08/03/2025 26 26 Encounter Details Date Type Department Care Team (Late st Contact Info) Description 04/26/2025 9:30 AM EDT Infusion [address] [address] Antoinette Gonzales PA-C 1031 [facility] [address] [place] [address] Mild cognitive impairment (Primary Dx) Social History [...] on file documented as of this encounter Last Filed Vital Signs Vital Sign Reading Time Taken Comments Blood Pressure 120/85 04/26/2025 11:39 AM EDT Pulse 55 04/26/2025 11:39 AM EDT Temperature 36.5 C (97.7 F) 04/26/2025 9:38 AM EDT Respiratory Rate 16 04/26/2025 11:39 AM EDT Oxygen Saturation 98% 04/26/2025 9:38 AM EDT Inhaled Oxygen Concentration - - Weight 91.3 kg (201 lb 4.5 oz) 04/26/2025 9:38 A M EDT Height 180.3 cm (5' 11 ) 04/26/2025 9:38 AM EDT Body Mass Index 28.07 04/26/2025 9:38 AM EDT documented in this encounter Functional Status * Are You Deaf or do You Have Serious Difficulty Hearing? Answer Date of Assessment Author No 11/09/2024 2:14 PM Diana Olivares RN * Patient's Vision Adequate to Safely Complete [...] documented in this encounter Progress Notes * Jamila Mann RN - 04/26/2025 9:56 AM EDT Patient presents to Infusion Center today for Lecanemab. Plan of care discussed and patient's questions addressed regarding today's infusion visit. Patient oriented to room and unit. Call light in reach. IV documented as on flow sheet, NS started to flush prior and after meds.Reviewed risks of an IV catheter & IV meds. Instructed to call with any redness, swelling, or pain at the IV site. Encouraged to use the arm opposite IV site for most activities and to use caution regarding IV. Patientverbalizes understanding. Patient took premedications prior to arrival. 1104 Infusion completed. NS flush started for 30 minute observation period. Discharge Summary: Patient leaving and voices no new complaints or concerns at this time. Instructed to contact MD with any new or worsening symptoms. Patient leaving with their belongings and is in stable condition. Reviewed discharge instructions and future appointments. D/C Home time: 1140 Patient has Transportation Home: yes Patient Left via: ambulatory documented in this encounter Plan of Treatment Upcoming Encounters Date Type Department Care Team (Late st Contact Info) Description 06/21/2025 3:00 PM EDT Infusion [address] [address] Antoinette Gonzales PA-C [address] [address] 07/05/2025 3:30 PM EDT Infusion [address] [address] Antoinette Gonzales PA-C [address] [address] 07/19/2025 2:30 PM EDT Infusion [address] [place] [phone] Antoinette Gonzales PA-C [address] [place] [address] [phone] 08/02/2025 1:30 PM EDT Infusion [address] [phone] Antoinette Gonzales PA-C [address] [place] [address] [phone] 08/16/2025 2:30 PM EDT Infusion [address] [address] Antoinette Gonzales PA-C [address] [place] [address] [phone] 08/30/2025 2:30 PM EST Infusion [address] [address] Antoinette Gonzales PA-C [address] [place] [address] [phone] 09/27/2025 2:30 PM EST Infusion [address] [phone] 10/25/2025 12:30 PM EST Office Visit [facility] Neurology [address] [place] [phone] Antoinette Gonzales PA-C [address] [place] [address] [phone] 10/25/2025 2:30 PM EST Infusion [address] [address] 11/08/2025 2:30 PM EST Infusion [facility] [address] [place] [address] 11/22/2025 2:30 PM EST Infusion [facility] [address] [place] [address] 12/06/2025 2:30 PM EST Infusion [facility] [address] [place] [address] 12/20/2025 2:30 PM EST Infusion [facility] [address] [place] [phone] 01/03/2026 2:30 PM EDT Infusion [facility] [address] [place] [phone] 01/17/2026 2:30 PM EDT Infusion [facility] [address] [place] [phone] 01/31/2026 2:30 PM EDT Infusion [facility] [address] [place] [phone] 02/14/2026 2:30 PM EDT Infusion [facility] [address] [place] [phone] 02/28/2026 2:30 PM EDT Infusion [facility] [address] [place] [address] 03/14/2026 2:30 PM EDT Infusion [facility] [address] [place] [address] 03/28/2026 2:30 PM EDT Infusion [facility] [address] [place] [address] 04/11/2026 2:30 PM EDT Infusion [facility] [address] [place] [address] 04/25/2026 2:30 PM EDT Infusion [facility] [address] [place] [phone] documented as of this encounter Visit Diagnoses Diagnosis Mild cognitive impairment- Primary Mild cognitive impairment, so stated documented in this encounter Administered Medications Inactive Administered Medications - up to 3 most recent administrations Medication Order MAR Action Action Date Dose Rate Site nc_lecanemab-irmb (LEQEMBI) 900 mg in sodium chloride 0.9 % 250 mL IV infusion 900 mg (10 mg/kg 90 kg Order-specific weight), Intravenous, at 259 mL/hr, Once, On Rhonda 04/26/25 at 1015, For 1 dose, Infuse with a 0.22-micron filter., 259 mL, Administer over 60 Minutes, RoutineIndications:Mild cognitive impairment New Bag 04/26/2025 10:04 AM EDT 900 mg 259 mL/hr documented in this encounter Care Teams Director Of Clinical Trials Relationship Specialty Start Date End Date Wallace Garcia MD [address] [place] [address] [facility] JULIO C[place]A MCCARTHY [address] PCP - General Internal Medicine 04/11/24 Marianne Monroy, RN Nurse Navigator Neurology 07/24/24 documented as of this encounter
--- OUTSIDE RECORDS SUMMARY | 2025-05-09 16:00 | XMS_ITS | Encounter Summary ---
Author Organization Healthcare Address [address] [place] [address] Care Team Providers Care Wire Stitcher Name Role Phone Wallace Garcia MD Primary Care Provider [phone] Encounter Details Date Type Department Care Team (Late st Contact Info) Description 05/09/2025 4:00 PM EDT Office Visit [facility] Room E214 [address] [place] [address] Anna Segundo, S [address] [facility] [address] [place] [phone] Obstructive sleep apnea (adult) (pediatric) (Primary Dx) Social History Tobacco Use Types Packs/Day Years Used Date Smoking Tobacco: Never Smokeless Tobacco: Never Alcohol Use Standard Drinks/Week Comments Never 0 (1 standard drink = 0.6 oz pur e alcohol) Sex and Gender Information Value Date Recorded Sex Assigned at Not on file Legal Sex Male 7:44 PM EDT Gender Identity Not on file Sexual Orientation Not on file documented as of this encounter Last Filed Vital Signs Vital Sign Reading Time Taken Comments Blood Pressure 104/64 05/09/2025 4:44 PM EDT Pulse 67 05/09/2025 4:44 PM EDT Temperature 36.6 C (97.9 F) 05/09/2025 4:44 PM EDT Respiratory Rate - - Oxygen Saturation 96% 05/09/2025 4:44 PM EDT Inhaled Oxygen Concentration - - Weight 90 kg (198 lb 6.6 oz) 05/09/2025 4:44 PM EDT Height 180.3 cm (5' 11 ) 05/09/2025 4:44 PM EDT Body Mass Index 27.67 05/09/2025 4:44 PM EDT documented in this encounter Miscellaneous Notes * Progress Notes - Anna Segundo, DDS - 05/09/2025 4:00 PM EDT Patient returned to the [facility] for a follow-up appointment to evaluate his Panthera appliance for the management of moderate SANDOR. History of present illness: Sanjeev Buckley reported some improvement in his symptoms since our last appointment. Reportedly, he uses the appliance every night for 5-7 hours and indicated using the AM asphalt patcher every morning for 5 minutes as recommended. denied snoring and gasping for air with the a ppliance. She notices that with the CPAP there is some air leaking. Sanjeev indicated that his sleep quality is good and that he has not daytime tiredness EES 0. Sanjeev Buckley denied changes in his bite and denied pain in jaw muscles and/or TMJ. He indicated that he is wearing the appliance of CPAP, he has worn the appliance this last week. Hethinks that the CPAP is not comfortable at all, the appliance is. If he ever wakes up to go to the bathroom he does not put the CPAP back on. CPAP and appliance feel equally effective. Appointment Date ESS Night-time urination 1st FU 03/29/25 4 0 2nd fu 05/09/25 0 0 Examination: Visit Vitals BP 104/64 Pulse 67 Temp 36.6 ??C (97.9 ??F) Ht 1.803 m (5' 11 ) Wt 90 kg (198 lb 6.6 oz) SpO2 96% BMI 27.67 kg/m?? No changes in occlusion noted since last appointment. No dental mobility was found AR occlusal contact with lizbeth stock was noted between all teeth. No pain upon palpation. No noises were recorded. Max opening 55 mm. Vertical overbite 0 mm and horizontal overjet 0 mm. Procedure: Arms 24 mm, not changed today. Remaining protrusive movement 6mm. Assessment: Moderate obstructive sleep apnea managed by MAD pending results of second sleep study. Plan: Patient to continue wearing appliance nightly. Patient to return for follow-up appointment in 6 months Jigar be sent note to Dr. Trejo to repeat sleep study with appliance in place. documented in this encounter Plan of Treatment Upcoming Encounters Date Type Department Care Team (Late st Contact Info) Description 01/17/2026 9:00 AM EDT [facility] Room E[address] [place] [address] Anna Segundo DDS [address] [address] Bibi Guillen documented as of this encounter Visit Diagnoses Diagnosis Obstructive sleep apnea (adult) (pediatric)- Primary documented in this encounter Additional Health Concerns Assessment Noted Time A Body Mass Index follow-up plan has been documented for the patient 05/10/2025 11:20 AM EDT documented as of this encounter Care Teams Wire Stitcher Relationship Specialty Start Date End Date Wallace Garcia MD 1210 [facility] [address] [place] [address] PCP - General 02/28/21 documented as of this encounter
--- OUTSIDE RECORDS SUMMARY | 2025-05-10 15:00 | XMS_ITS | Encounter Summary ---
Author Organization [facility] Address [address] [place] [address] Care Team Providers Care Atm Technician Name Role Phone Wallace Garcia MD Primary Care Provider [phone] Marianne Monroy RN Unavailable Unavailable Reason for Visit * Episode Based Medications (Routine) - Authorized Specialty Diagnoses / Procedures Referred By Mita boggs Referred To Contact Diagnoses Mild cognitive impairment Procedures [place] INJ, LECANEMAB-IRMB, 1 MG Antoinette Gonzales PA-C 15[address] [facility] [address] [place] [address] Phone: tel: fax: [address] [address] Phone: tel: Referral ID Status Reason Start Date Expiration Date V isits Requested Visits Authorized [id number] Authorized 07/24/2024 08/03/2025 26 26 Encounter Details Date Type Department Care Team (Late st Contact Info) Description 05/10/2025 3:00 PM EDT Infusion [address] [address] Antoinette Gonzales PA-C 85[address] [facility] [address] [place] [address] Mild cognitive impairment (Primary Dx) Social [...] Sign Reading Time Taken Comments Blood Pressure 115/77 05/10/2025 4:50 PM EDT Pulse 50 05/10/2025 4:50 PM EDT Temperature 36.9 C (98.4 F) 05/10/2025 3:03 PM EDT Respiratory Rate 16 05/10/2025 3:03 PM EDT Oxygen Saturation 96% 05/10/2025 3:03 PM EDT Inhaled Oxygen Concentration - - Weight 89 kg (196 lb 3.4 oz) 05/10/2025 3:03 PM EDT Height 180.3 cm (5' 11 ) 05/10/2025 3:03 PM EDT Body Mass Index 27.37 05/10/2025 3:03 PM EDT documented in this encounter Functional Status [...] documented in this encounter Progress Notes * Zahraa Verduzco RN - 05/10/2025 3:25 PM EDT Pt arrived to [facility] Infusion Center for Leqembi #17 infusion. Pt denies any new symptoms or concerns. IV started in L FA. Positive blood return noted from IV. Pt educated to notify RN if IV becomes at all uncomfortable. Pt reports taking premedications prior to arrival. Pt received Leqembi with no issues or complaints and remained in clinic 30mins post infusion with no change in assessment. Pre and post vital signs documented in flowsheet. Discharge Summary: D/C Home time: 1650 Patient has Transportation Home: yes Patient has Assistant To The Ceo: yes Patient Left via: ambulatory documented in this encounter Plan of Treatment Upcoming Encounters Date Type Department Care Team (Late st Contact Info) Description 06/21/2025 3:00 PM EDT Infusion [place] [phone] Antoinette Gonzales PA-C [address] [place], [place] [phone] 07/05/2025 3:30 PM EDT Infusion [place] [phone] Antoinette Gonzales PA-C [address] [place] [address] [phone] 07/19/2025 2:30 PM EDT Infusion [address] [address] Antoinette Gonzales PA-C [address] [place] [address] [place] [address] [phone] 08/02/2025 1:30 PM EDT Infusion [address] [phone] Antoinette Gonzales PA-C [address] [place] [address] [phone] 08/16/2025 2:30 PM EDT Infusion [address] [phone] Antoinette Gonzales PA-C [address] [place] [address] [phone] 08/30/2025 2:30 PM EST Infusion [address] [address] Antoinette Gonzales PA-C [address] [place] [address] [phone] 09/27/2025 2:30 PM EST Infusion [address] [address] 10/25/2025 12:30 PM EST Office Visit [facility] Neurology [address] [place] [phone] Antoinette Gonzales PA-C [address] [place] [address] [phone] 10/25/2025 2:30 PM EST Infusion [address] [address] 11/08/2025 2:30 PM EST Infusion [address] [address] 11/22/2025 2:30 PM EST Infusion [address] [place] [address] 12/06/2025 2:30 PM EST [facility]fusion [facility] [address] [place] [address] 12/20/2025 2:30 PM EST Infusion [facility] [address] [place] [address] 01/03/2026 2:30 PM EDT Infusion [facility] [address] [place] [phone] 01/17/2026 2:30 PM EDT Infusion [address] [address] 01/31/2026 2:30 PM EDT Infusion [address] [address] 02/14/2026 2:30 PM EDT Infusion [facility] [address] [place] [phone] 02/28/2026 2:30 PM EDT Infusion [facility] [address] [place] [phone] 03/14/2026 2:30 PM EDT Infusion [address] [address] 03/28/2026 2:30 PM EDT Infusion [facility] [address] [place] [phone] 04/11/2026 2:30 PM EDT Infusion [facility] [address] [place] [address] 04/25/2026 2:30 PM EDT Infusion [facility] [address] [place] [phone] documented as of this encounter Visit Diagnoses [...] Intravenous, at 259 mL/hr, Once, On Rhonda 05/10/25 at 1530, For 1 dose, Infuse with a 0.22-micron filter., 259 mL, Administer over 60 Minutes, RoutineIndications:Mild cognitive impairment New Bag 05/10/2025 3:06 PM EDT 900 mg 259 mL/hr documented in this encounter Care Teams Atm Technician Relationship Specialty Start Date End Date Wallace Garcia MD [address] [place] [address] JULIO C[place]ARMARIANELA MCCARTHY [address] PCP - General Internal Medicine 04/11/24 Marianne Monroy, RN Nurse Navigator Neurology 07/24/24 documented as of this encounter
--- OUTSIDE RECORDS SUMMARY | 2025-05-24 15:00 | XMS_ITS | Encounter Summary ---
Author Organization [facility] Address [address] [place] [address] Care Team Providers Care Associate Professor Of Library Science Name Role Phone Wallace Garcia MD Primary Care Provider [phone] Marianne Monroy RN Unavailable Unavailable Reason for Visit * Episode Based Medications (Routine) - Authorized Specialty Diagnoses / Procedures Referred By Mita boggs Referred To Contact Diagnoses Mild cognitive impairment Procedures [place] INJ, LECANEMAB-IRMB, 1 MG Antoinette Gonzales PA-C 0583 [facility] [address] [place] [address] Phone: tel: fax: [address] [address] Phone: tel: Referral ID Status Reason Start Date Expiration Date V isits Requested Visits Authorized [id number] Authorized 07/24/2024 08/03/2025 26 26 Encounter Details Date Type Department Care Team (Late st Contact Info) Description 05/24/2025 3:00 PM EDT Infusion [address] [address] Antoinette Gonzales PA-C 7417 [facility] [address] [place] [address] Mild cognitive impairment (Primary Dx) Social [...] Sign Reading Time Taken Comments Blood Pressure 121/61 05/24/2025 4:57 PM EDT Pulse 53 05/24/2025 4:57 PM EDT Temperature 36.2 C (97.2 F) 05/24/2025 4:57 PM EDT Respiratory Rate 18 05/24/2025 4:57 PM EDT Oxygen Saturation - - Inhaled Oxygen Concentration - - Weight 90.2 kg (198 lb 13.7 oz) 05/24/2025 3:18 PM EDT Height - - Body Mass Index 27.73 05/10/2025 3:03 PM EDT documented in this [...] Progress Notes * Zahraa Verduzco RN - 05/24/2025 7:00 PM EDT Pt arrived to [facility] Infusion Center for Leqembi #19 infusion. Pt denies any new symptoms or concerns. IV started in L FA. Positive blood return noted from IV. Pt educated to notify RN if IV becomes at all uncomfortable. Premedications given per order. Pt received Leqembi with no issues or complaints and remained in clinic 30mins post infusion with no change in assessment. Pre and post vital signs documented in flowsheet. Discharge Summary: D/C Home time: 1640 Patient has Transportation Home: yes Patient has Reliability Manager: yes Patient Left via: ambulatory documented in this encounter Plan of Treatment Upcoming Encounters Date Type Department Care Team (Late st Contact Info) Description 06/21/2025 3:00 PM EDT Infusion [address] [phone] Antoinette Gonzales PA-C [address] [place] [address] [place] [address] [phone] 07/05/2025 3:30 PM EDT Infusion [address] [phone] Antoinette Gonzales PA-C [address] [place] [address] [phone] 07/19/2025 2:30 PM EDT Infusion [address] [phone] Antoinette Gonzales PA-C [address] [place] [address] [place] [address] [phone] 08/02/2025 1:30 PM EDT Infusion [address] [phone] Antoinette Gonzales PA-C 4915 [facility] [address] [place] [address] [phone] 08/16/2025 2:30 PM EDT Infusion [address] [phone] Antoinette Gonzales PA-C [address] [place] [address] [place] [address] [phone] 08/30/2025 2:30 PM EST Infusion [address] [phone] Antoinette Gonzales PA-C [address] [place] [address] [place] [address] [phone] 09/27/2025 2:30 PM EST Infusion [address] [address] 10/25/2025 12:30 PM EST Office Visit [facility] Neurology [address] [place] [address] [place] [phone] Antoinette Gonzales PA-C [address] [place] [address] [place] [address] [phone] 10/25/2025 2:30 PM EST Infusion [address] [address] 11/08/2025 2:30 PM EST Infusion [address] [address] 11/22/2025 2:30 PM EST Infusion [address] [address] 12/06/2025 2:30 PM EST Infusion [facility] [address] [place] [address] 12/20/2025 2:30 PM EST Infusion [facility] [address] [place] [phone] 01/03/2026 2:30 PM EDT Infusion [address] [address] 01/17/2026 2:30 PM EDT Infusion [address] [address] 01/31/2026 2:30 PM EDT Infusion [address] [address] 02/14/2026 2:30 PM EDT Infusion [address] [address] 02/28/2026 2:30 PM EDT Infusion [address] [address] 03/14/2026 2:30 PM EDT Infusion [facility] [address] [place] [phone] 03/28/2026 2:30 PM EDT Infusion [facility] [address] [place] [phone] 04/11/2026 2:30 PM EDT Infusion [facility] [address] [place] [phone] 04/25/2026 2:30 PM EDT Infusion [facility] [address] [place] [phone] documented as of this encounter Visit Diagnoses [...] Intravenous, at 259 mL/hr, Once, On Rhonda 05/24/25 at 1545, For 1 dose, Infuse with a 0.22-micron filter., 259 mL, Administer over 60 Minutes, RoutineIndications:Mild cognitive impairment New Bag 05/24/2025 3:18 PM EDT 900 mg 259 mL/hr documented in this encounter Care Teams Associate Professor Of Library Science Relationship Specialty Start Date End Date Wallace Garcia MD [address] [place] [address] MARIANELA LLANES [address] PCP - General Internal Medicine 04/11/24 Marianne Monroy, TOD Nurse Navigator Neurology 07/24/24 documented as of this encounter
--- OUTSIDE RECORDS SUMMARY | 2025-06-07 11:00 | XMS_ITS | Encounter Summary ---
Author Organization [facility] Address [address] [place] [address] Care Team Providers Care Airplane Navigator Name Role Phone Wallace Garcia MD Primary Care Provider [phone] Marianne Monroy RN Unavailable Unavailable Reason for Visit * Reason Comments Infusion * Episode Based Medications (Routine) - Authorized Specialty Diagnoses / Procedures Referred By Contac t Referred To Contact Diagnoses Mild cognitive impairment Procedures [place] INJ, LECANEMAB-IRMB, 1 MG Antoinette Gonzales PA-C [address] [address] Phone: tel: fax: [address] [phone] Phone: tel: Referral ID Status Reason Start Date Expiration Date V isits Requested Visits Authorized [id number] Authorized 07/24/2024 08/03/2025 26 26 Encounter Details Date Type Department Care Team (Late st Contact Info) Description 06/07/2025 11:00 AM EDT Infusion [address] [phone] Antoinette Gonzales PA-C [address] [facility] [address] [place] [phone] Mild cognitive impairment (Primary Dx) Social [...] Sign Reading Time Taken Comments Blood Pressure 111/54 06/07/2025 1:15 PM EDT Pulse 57 06/07/2025 1:15 PM EDT Temperature 36.3 C (97.4 F) 06/07/2025 11:08 AM EDT Respiratory Rate 16 06/07/2025 11:08 AM EDT Oxygen Saturation 96% 06/07/2025 11:08 AM EDT Inhaled Oxygen Concentration - - Weight 90.4 kg (199 lb 4.7 oz) 06/07/2025 11:08 AM EDT Height 180.3 cm (5' 11 ) 06/07/2025 11:08 AM EDT Body Mass Index 27.8 06/07/2025 11:08 AM EDT documented in this encounter Functional [...] documented in this encounter Progress Notes * Cherie Burton RN - 06/07/2025 11:17 AM EDT Patient presents to Infusion Center today for LEQEMBI. Plan of care discussed and patient's questions [...] activities and to use caution regarding IV. Patient verbalizes understanding. Pre meds taken from home supply this am. 1243 Infusion completed. NS flush started. Discharge Summary: Patient leaving and voices no new complaints or concerns at this time. Instructed to contact MD with any new or worsening symptoms. Patient leaving with their belongings and is in stable condition. Reviewed discharge instructions and future appointments. D/C Home time: 1318 Patient has Transportation Home: yes Patient Left via: ambulatory documented in this encounter Plan of Treatment Upcoming Encounters Date Type Department Care Team (Late st Contact Info) Description 06/21/2025 3:00 PM EDT Infusion [address] [phone] Antoinette Gonzales PA-C [address] [phone] 07/05/2025 3:30 PM EDT Infusion [address] [phone] Antoinette Gonzales PA-C [address] [phone] 07/19/2025 2:30 PM EDT Infusion [address] [phone] Antoinette Gonzales PA-C [address] [place] [address] [place] [address] [phone] 08/02/2025 1:30 PM EDT Infusion [address] [phone] Antoinette Gonzales PA-C [address] [place] [address] [phone] 08/16/2025 2:30 PM EDT Infusion [address] [phone] Antoinette Gonzales PA-C [address] [place] [address] [phone] 08/30/2025 2:30 PM EST Infusion [address] [phone] Antoinette Gonzales PA-C [address] [place] [address] [phone] 09/27/2025 2:30 PM EST Infusion [address] [phone] 10/25/2025 12:30 PM EST Office Visit [facility] [address] [place] [phone] Antoinette Gonzales PA-C [address] [place] [address] [phone] 10/25/2025 2:30 PM EST Infusion [address] [phone] 11/08/2025 2:30 PM EST [facility]fusion [facility] [address] [place] [address] 11/22/2025 2:30 PM EST Infusion [facility] [address] [place] [phone] 12/06/2025 2:30 PM EST Infusion [facility] [address] [place] [address] 12/20/2025 2:30 PM EST Infusion [facility] [address] [place] [phone] 01/03/2026 2:30 PM EDT Infusion [facility] [address] [place] [phone] 01/17/2026 2:30 PM EDT Infusion [facility] [address] [place] [phone] 01/31/2026 2:30 PM EDT Infusion [facility] [address] [place] [phone] 02/14/2026 2:30 PM EDT Infusion [facility] [address] [place] [phone] 02/28/2026 2:30 PM EDT Infusion [facility] [address] [place] [phone] 03/14/2026 2:30 PM EDT Infusion [facility] [address] [place] [address] 03/28/2026 2:30 PM EDT Infusion [facility] [address] [place] [address] 04/11/2026 2:30 PM EDT Infusion [facility] [address] [place] [phone] 04/25/2026 2:30 PM EDT Infusion [facility] [address] [place] [phone] documented as of this encounter Visit Diagnoses [...] Intravenous, at 259 mL/hr, Once, On Rhonda 06/07/25 at 1145, For 1 dose, Infuse with a 0.22-micron filter., 259 mL, Administer over 60 Minutes, RoutineIndications:Mild cognitive impairment New Bag 06/07/2025 11:43 AM EDT 900 mg 259 mL/hr documented in this encounter Care Teams Airplane Navigator Relationship Specialty Start Date End Date Wallace Garcia MD [address] [place] [address] [facility] [address] [place] [address] PCP - General Internal Medicine 04/11/24 Marianne Monroy, RN Nurse Navigator Neurology 07/24/24 documented as of this encounter
--- OUTSIDE RECORDS SUMMARY | 2025-06-13 06:40 | XMS_ITS | Continuity of Care Document ---
Author Organization [facility] Address [address] [place] [address] Care Team Providers Care Electrical Inspector Name Role Phone Wallace Garcia MD Primary Care Provider [phone] Marianne Monroy RN Unavailable Unavailable Encounters Date Type Department Care Team Description 06/07/2025 11:00 AM EDT Infusion [address] [phone] Antoinette Gonzales PA-C Mild cognitive impairment (Primary Dx) 05/24/2025 3:00 PM EDT Infusion [facility] [address] [place] [address] Antoinette Gonzales, PA-C Mild cognitive impairment (Primary Dx) 05/10/2025 3:00 PM EDT Infusion [facility] [address] [place] [phone] Antoinette Gonzales, PA-C Mild cognitive impairment (Primary Dx) 04/26/2025 9:30 AM EDT Infusion [address] [phone] Antoinette Gonzales, PA-C Mild cognitive impairment (Primary Dx) 04/26/2025 9:00 AM EDT Telemedicine [facility] [address] [facility] [address] [place] [address] Antoinette Gonzales, PA-C Mild cognitive impairment (Primary Dx) 04/12/2025 2:00 PM EDT Infusion [address] [phone] Re Gonzalesica F, PA-C Mild cognitive impairment (Primary Dx) 03/29/2025 2:00 PM EDT Infusion [address] [phone] Antoinette Gonzales F, PA-C Mild cognitive impairment (Primary Dx) 03/26/2025 Results Follow-Up [facility] [address] [facility] [address] [place] [address] Antoinette Gonzales, PA-C MRI Brain Wo Contrast 03/24/2025 9:00 AM EDT - 03/24/2025 11:59 PM EDT Hospital Encounter [facility] [place] [id number] [facility] [address] [place] [address] Antoinette Gonzales F, PA-C Mild cognitive impairment Discharge Disposition: Home or Self Care 03/15/2025 2:00 PM EDT Infusion [address] [address] Antoinette Gonzales F, PA-C Mild cognitive impairment (Primary Dx) 03/01/2025 2:00 PM EDT Infusion [address] [address] Antoinette Gonzales F, PA-C Mild cognitive impairment (Primary Dx) 02/15/2025 2:00 PM EDT Infusion [address] [address] Re Gonzalesica F, PA-C Mild cognitive impairment (Primary Dx) 02/01/2025 2:00 PM EDT Infusion [address] [address] Antoinette Gonzales, PA-C Mild cognitive impairment (Primary Dx) 01/18/2025 2:00 PM EDT Infusion [address] [address] Antoinette Gonzales, PA-C Mild cognitive impairment (Primary Dx) 01/04/2025 2:00 PM EDT Infusion [address] [address] Antoinette Gonzales, PA-C Mild cognitive impairment (Primary Dx) 12/21/2024 2:00 PM EST Infusion [address] [address] Antoinette Gonzales, PA-C Mild cognitive impairment (Primary Dx) 12/14/2024 8:50 AM EST - 12/14/2024 11:59 PM EST Hospital Encounter [facility] [address] [place] [address] [place] [phone] Antoinette Gonzales F, PA-C Mild cognitive impairment Discharge Disposition: Home or Self Care 12/07/2024 2:00 PM EST Infusion [place] [phone] Antoinette Gonzales F, PA-C Mild cognitive impairment (Primary Dx) 11/23/2024 2:00 PM EST Infusion [address] [address] Wallace Garcia MD Mild cognitive impairment (Primary Dx) 11/18/2024 11:37 AM EST - 11/18/2024 11:59 PM EST Hospital Encounter [facility] [address] [place] [phone] Antoinette Gonzales, PA-C Mild cognitive impairment Discharge Disposition: Home or Self Care 11/09/2024 2:00 PM EST Infusion [address] [place] [address] Antoinette Gonzales PA-C Mild cognitive impairment (Primary Dx) 10/26/2024 2:00 PM EST Infusion [facility] [address] [place] [address] Antoinette Gonzales PA-Chelsye Mild cognitive impairment (Primary Dx) 10/19/2024 10:30 AM EST Telemedicine [facility] [address] [place] [phone] Antoinette Gonzales PA-C Mild cognitive impairment (Primary Dx) 10/12/2024 1:30 PM EST Infusion [facility] [address] [place] [address] Wallace Garcia MD Mild cognitive impairment (Primary Dx) 10/02/2024 Scanned Document [facility] [address] [place] [phone] Damon Aguirre MD Misc Action Item ([facility] PHYS GRP- INFUSION NOTES REQ ) 09/28/2024 10:00 AM EST Infusion [facility] [address] [place] [address] Antoinette Gonzales PA-C Mild cognitive impairment (Primary Dx) 07/18/2024 10:00 AM EDT Office Visit [facility] [address] [place] [phone] Antoinette Gonzales PA-C Mild cognitive impairment (Primary Dx) 04/24/2024 6:45 AM EDT - 04/24/2024 11:59 PM EDT Hospital Encounter [facility] Radiology [address] [place] [phone] Damon Aguirre MD Mild cognitive impairment Discharge Disposition: Home or Self Care 04/11/2024 10:00 AM EDT Office Visit [facility] [address] [place] [phone] Damon Aguirre MD Mild cognitive impairment (Primary Dx) 02/23/2024 Scanned Document [facility] [address] [facility] [address] [place] [address] Damon Aguirre MD Referrals ([facility]- REFERRAL ) Allergies No known active allergies Medications aspirin 325 MG tablet Take 325 mg by mouth daily. 05/29/2020 Active atorvastatin (LIPITOR) 80 MG tablet Take 80 mg by mouth daily. Active clopidogrel (PLAVIX) 75 MG tablet Take 75 mg by mouth daily. Active docusate sodium (COLACE) 100 MG CAPS capsule Take 100 mg by mouth as needed. 05/28/2020 Active folic acid (FOLVITE) 400 MCG tablet Daily 06/14/2018 Active losartan (COZAAR) 100 MG tablet Daily 06/14/2018 Active Multiple Vitamins-Mineral s (CENTRUM SILVER 50+MEN) TABS Take 1 tablet by mouth daily. Active rosuvastatin (CRESTOR) 20 MG tablet Active tamsulosin (FLOMAX) 0.4 MG CAPS Active TURMERIC PO Take 500 mg by mouth daily. Active Apoaequorin (PREVAGEN) 10 MG CAPS Take by mouth. Active memantine (NAMENDA) 10 MG tablet Take 1 tablet by mouth 2 (two) times daily. 60 tablet 11 07/18/2024 Active donepezil (ARICEPT) 10 MG tablet Take 1 tablet by mouth daily. 30 tablet 11 10/19/2024 Active lecanemab-irmb (LEQEMBI) 200 MG/2ML SOLN iv solnIndications: Mild cognitive impairment Infuse 9 mLs into the vein every 14 (fourteen) days. 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 10/19/2022 Acute blood loss anemia 05/28/2020 Acute postoperative pain 05/28/2020 Hyponatremia 05/28/2020 Leukocytosis 05/28/2020 Arthritis of left hip 05/27/2020 CAD (coronary artery disease) 05/27/2020 HTN (hypertension) 05/27/2020 Hyperlipidemia 05/27/2020 Status post total hip replacement, left 05/27/20 20 Immunizations Immunization Administration Dates Next Due Abrysvo RSV 05/17/2024 COVID-19 Comirnaty/Pfizer 12 yo and older 2022 COVID-19 MODERNA BIVALENT AGES 18 AND OLDER 07/20 COVID-19 MODERNA MONOVALENT AGES 12 AND OLDER 08/20/2021,11/25/2020,10/23/2020 COVID-19 PFIZER MONOVALENT A GES 12 AND OLDER 08/17/2022 Hep A Adult (age 19+) 04/14/2019,10/13/2018 Influenza, Trivalent, Adjuvanted 09/21/2024 Pneumococcal Conjugate 13-Valent 10/13/2018 Pneumococcal Conjugate 20-Valent 05/17/2024 Social History Smoking Status as of 06/13/2025 Tobacco Use Types Packs/Day Years Used Date Smoking Tobacco: Never Assessed Sex and Gender Information Value Date Recorded Sex Assigned at Not on file Legal Sex Male 11:31 AM EDT Gender Identity Not on file Sexual Orientation Not on file Last Filed Vital Signs Vital Sign Reading [...] Mass Index 27.8 06/07/2025 11:08 AM EDT Plan of Treatment Upcoming Encounters Date Type Department Care Team (Late st Contact Info) Description 06/21/2025 3:00 PM EDT Infusion [address] [phone] Antoinette Gonzales PA-C [address] [place] [address] [phone] 07/05/2025 3:30 PM EDT Infusion [address] [phone] Antoinette Gonzales PA-C [address] [place] [address] [phone] 07/19/2025 2:30 PM EDT Infusion [address] [phone] Antoinette Gonzales PA-C [address] [place] [address] [phone] 08/02/2025 1:30 PM EDT Infusion [address] [phone] Antoinette Gonzales PA-C [address] [place] [address] [phone] 08/16/2025 2:30 PM EDT Infusion [address] [phone] Antoinette Gonzales PA-C [address] [place] [address] [phone] 08/30/2025 2:30 PM EST Infusion [address] [phone] Antoinette Gonzales PA-C [address] [facility] [address] [place] [phone] 09/27/2025 2:30 PM EST Infusion [facility] [address] [place] [address] 10/25/2025 12:30 PM EST Office Visit [facility] [address] [facility] [address] [place] [phone] Antoinette Gonzales PA-C [address] [facility] [address] [place] [address] [phone] 10/25/2025 2:30 PM EST Infusion [address] [address] 11/08/2025 2:30 PM EST Infusion [address] [address] 11/22/2025 2:30 PM EST Infusion [address] [address] 12/06/2025 2:30 PM EST Infusion [address] [address] 12/20/2025 2:30 PM EST Infusion [address] [address] 01/03/2026 2:30 PM EDT Infusion [address] [address] 01/17/2026 2:30 PM EDT Infusion [address] [address] 01/31/2026 2:30 PM EDT Infusion [place] 5[address]25 [place] [address] 02/14/2026 2:30 PM EDT Infusion [facility] [address] [place] [phone] 02/28/2026 2:30 PM EDT Infusion [facility] [address] [place] [phone] 03/14/2026 2:30 PM EDT Infusion [address] [address] 03/28/2026 2:30 PM EDT Infusion [facility] [address] [place] [phone] 04/11/2026 2:30 PM EDT Infusion [facility] [address] [place] [phone] 04/25/2026 2:30 PM EDT Infusion [facility] [address] [place] [phone] Procedures Procedure Name Priority Date/Time Associated Diagnosis Comments MRI BRAIN W/O CONTRAST Routine 03/24/2025 9:18 AM EDT Mild cognitive impairment MRI BRAIN W/O CONTRAST Routine 12/14/2024 9:43 AM EST Mild cognitive impairment MRI BRAIN W/O CONTRAST Routine 11/18/2024 12:04 PM EST Mild cognitive impairment A1C - EXTERNAL RESULT SCAN Routine 05/11/2024 11:58 AM EDT LAB - EXTERNAL RESULT SCAN Routine 05/11/2024 8:45 AM EDT GENETIC STUDY - EXTERNAL RESULT SCAN Routine 05/06/2024 11:57 AM EDT FL LUMBAR PUNCTURE DIAGNOSTIC Routine 04/24/2024 10:48 AM EDT Mild cognitive impairment ALZHEIMER'S DISEASE EVALUATION, CSF Routine 04/24/2024 10:20 AM EDT EXTRA CSF SPECIMEN Routine 04/24/2024 10 :20 AM EDT PROTIME-INR STAT 04/24/2024 7:03 AM EDT SLEEP STUDY - EXTERNAL RESULT SCAN Routine 02/26/2024 EEG - EXTERNAL RESULT SCAN Routine 01/10/2024 MRI/MRA - EXTERNAL RESULT SCAN Routine 01/10/2024 CT SCAN - EXTERNAL RESULT SCAN Routine 11/16/2023 VASCULAR STUDY - EXTERNAL RESULT SCAN Routine 09/28/2023 Results * MRI Brain Wo Contrast (03/24/2025 9:18 AM EDT) Only the most recent of3 resultswithin the time period is included. [facility] RAD WORKSTATION ID [id number] OR POWERSCRIBE Anatomical Region Laterality Modality Head [facility] Magnetic Res onance Imaging 03/25/2025 8:5 0 AM EDT Narrative 03/25/2025 8:52 AM EDT REVIEWING YOUR TEST RESULTS IN [facility] A SUB[facility] FOR DISCUSSING THOSE RESULTS WITH YOUR HEALTH CARE PROVIDER. PLEASE CONTACT YOUR PROVIDER VIA [facility] TO DISCUSS ANY QUESTIONS OR CONCERNS YOU MAY HAVE REGARDING THESE TEST RESULTS. RADIOLOGY REPORT FACILITY: [facility] UNIT/AGE/GENDER: ND.MRI OP AGE:75 Y SEX:M PATIENT NAME/: SANJEEV BROOKS 1950 UNIT NUMBER: [id number] ACCESSION NUMBER: [id number] MRI OF THE BRAIN WITHOUT IV CONTRAST DATE: 03/24/2025 9:18 AM CLINICAL HISTORY: anti amyloid therapy. COMPARISONS: December 14, 2024 TECHNIQUE: Multisequence, multiplanar MR images of the brain are provided without IV contrast. FINDINGS: Parenchyma: No acute infarct or intracranial hemorrhage. No mass, mass effect or midline shift. Mild chronic microangiopathy of the white matter. No effusion or microhemorrhage has developed. Ventricles/Extra-Axial Spaces: No hydrocephalus or extra-axial fluid collection. Flow Voids: Major intracranial flow voids are intact. Extracranial: Visualized orbits are unremarkable. Paranasal sinuses and mastoids are clear. IMPRESSION: No acute abnormality or evidence of ARIA. Dictated by: Ty Castro M.D. Images and Report reviewed and interpreted by: Ty Castro M.D. <PS><Electronically signed by: Ty Castro M.D.> 03/25/2025850 [id number] Procedure Note Ty Castro MD - 03/25/2025 REVIEWING YOUR TEST RESULTS IN [facility] IS NOT A SUBSTITUTE FORDISCUSSING THOSE RESULTS WITH YOUR HEALTH CARE PROVIDER. PLEASE CONTACT YOUR PROVIDER [facility] TO DISCUSS ANY QUESTIONS ORCONCERNS YOU MAY HAVE REGARDING THESE TEST RESULTS. RADIOLOGY REPORT FACILITY: [facility] UNIT/AGE/GENDER: ND.MRI OP AGE:75 Y SEX:M PATIENT NAME/: SANJEEV BROOKS 1950 UNIT NUMBER: [id number] ACCESSION NUMBER: [id number] MRI OF THE BRAIN WITHOUT IV CONTRAST DATE: 03/24/2025 9:18 AM CLINICAL HISTORY: anti amyloid therapy. COMPARISONS: December 14, 2024 TECHNIQUE: Multisequence, multiplanar MR images of the brain are provided without IV contrast. FINDINGS: Parenchyma: No acute infarct or intracranial hemorrhage. No mass, mass effect or midline shift. Mild chronic microangiopathy of the white matter. No effusion or microhemorrhage has developed. Ventricles/Extra-Axial Spaces: No hydrocephalus or extra-axial fluid collection. Flow Voids: Major intracranial flow voids are intact. Extracranial: Visualized orbits are unremarkable. Paranasal sinuses and mastoids are clear. IMPRESSION: No acute abnormality or evidence of ARIA. Dictated by: Ty Castro M.D. Images and Report reviewed and interpreted by: Ty Castro M.D. <PS><Electronically signed by: Ty Castro M.D.> 03/25/202551 [id number] us Antoinette Gonzales PA-C IMG MRI ORDERABLES Final Res ult * (ABNORMAL) A1C - External Result Scan (05/11/2024 11:58 AM EDT) Pathologist [facility] Hemoglobin [id number] 6.4(A) 4.5 - 6.2 % WOUND SWAB / Unknown Result [facility] Provider Not In System LAB BLOOD ORDERABLES Edit ed Result - Final * LAB - EXTERNAL RESULT SCAN (05/11/2024 8:45 AM EDT) WOUND SWAB / Unknown Result [facility] Historical Provider LAB BLOOD ORDERABLES Edited Result - Final * GENETIC STUDY - EXTERNAL RESULT SCAN (05/06/2024 11:57 AM EDT) WOUND SWAB / Unknown Result [facility] Provider LAB BLOOD ORDERABLES Edited Result - Final * FL Lumbar Puncture Diagnostic (04/24/2024 10:48 AM EDT) [facility] RAD WORKSTATION ID [id number] OR POWERSCRIBE Anatomical Region Laterality Modality [facility] Radiographic Imaging 04/24/2024 11:5 9 AM EDT Narrative 04/24/2024 12:02 PM EDT REVIEWING YOUR TEST RESULTS IN [facility] IS NOT A SUBSTITUTE FOR DISCUSSING THOSE RESULTS WITH YOUR HEALTH CARE PROVIDER. PLEASE CONTACT YOUR PROVIDER VIA [facility] TO DISCUSS ANY QUESTIONS OR CONCERNS YOU MAY HAVE REGARDING THESE TEST RESULTS. RADIOLOGY REPORT FACILITY: [facility] UNIT/AGE/GENDER: TIMO OP AGE:74 Y SEX:M PATIENT NAME/: SANJEEV BROOKS 1950 UNIT NUMBER: [id number] ACCESSION NUMBER: [id number] EXAMINATION: Fluoroscopy-guided lumbar puncture DATE: 04/24/2024 10:48 AM PROVIDED INDICATION: Mild cognitive impairment. Memory loss CONSENT: The risks and benefits of the procedure and its alternatives were explained to the patient. The patient had ample opportunity to ask questions and agreed to proceed with the procedure. Informed consent was then obtained with a witness present. TECHNIQUE: The patient was placed in a left lateral decubitus position on the fluoroscopy table. The skin surface for access to the thecal sac at the level of L2-L3 was identified fluoroscopically and marked. The area was prepped and draped in the usual sterile fashion. Approximately 5 ml of 1% lidocaine was utilized for local anesthesia. The tip of a 20 gauge spinal needle was then advanced into the lumbar thecal sac at level of L2-L3 using intermittent fluoroscopic guidance. Needle tip position was confirmed by noting clear spinal fluid in the needle hub. A total of 6 ml of clear cerebrospinal fluid was then obtained via gravity drainage and sent to the clinical laboratories for analysis as requested by the clinical service. After the first 2 mL were collected, the next 2.5 mL were collected in special tubing as requested by the referring provider. The needle was removed and direct pressure was applied for a few minutes. The patient tolerated the procedure well with no immediate postprocedure complications. Fluoro time: 0.1 minutes Air Kerma: 1.7 mGy Number of images sent to PACS: 1 IMPRESSION: 1. Uncomplicated fluoroscopy-guided lumbar puncture obtaining 6 ml of clear cerebrospinal fluid as described above. Dictated by: Nasra Hernández M.D. Images and Report reviewed and interpreted by: Nasra Hernández M.D. <PS><Electronically signed by: Nasra Hernández M.D.> 04/24/2024 1201 [id number] Procedure Note Nasra Hernández MD - 04/24/2024 REVIEWING YOUR TEST RESULTS IN [facility] IS NOT A SUBSTITUTE FORDISCUSSING THOSE RESULTS WITH YOUR HEALTH CARE PROVIDER. PLEASE CONTACT YOUR PROVIDER VIA [employer] TO DISCUSS ANY QUESTIONS ORCONCERNS YOU MAY HAVE REGARDING THESE TEST RESULTS. RADIOLOGY REPORT FACILITY: [facility] UNIT/AGE/GENDER: TIMO OP AGE:74 Y SEX:M PATIENT NAME/: SANJEEV BROOKS 1950 UNIT NUMBER: [id number] ACCESSION NUMBER: [id number] EXAMINATION: Fluoroscopy-guided lumbar puncture DATE: 04/24/2024 10:48 AM PROVIDED INDICATION: Mild cognitive impairment. Memory loss CONSENT: The risks and benefits of the procedure and its alternatives were explained to the patient. The patient had ample opportunity to ask questions and agreed to proceed with the procedure. Informed consent was then obtained with a witness present. TECHNIQUE: The patient was placed in a left lateral decubitus position on the fluoroscopy table. The skin surface for access to the thecal sac at the level of L2-L3 was identified fluoroscopically and marked. The area was prepped and draped in the usual sterile fashion. Approximately 5 ml of 1% lidocaine was utilized for local anesthesia. The tip of a 20 gauge spinal needle was then advanced into the lumbar thecal sac at level of L2-L3 using intermittent fluoroscopic guidance. Needle tip position was confirmed by noting clear spinal fluid in the needle hub. A total of 6 ml of clear cerebrospinal fluid was then obtained via gravity drainage and sent to the clinical laboratories for analysis as requested by the clinical service. After the first 2 mL were collected, the next 2.5 mL were collected in special tubing as requested by the referring provider. The needle was removed and direct pressure was applied for a few minutes. The patient tolerated the procedure well with no immediate postprocedure complications. Fluoro time: 0.1 minutes Air Kerma: 1.7 mGy Number of images sent to PACS: 1 IMPRESSION: 1. Uncomplicated fluoroscopy-guided lumbar puncture obtaining 6 ml of clear cerebrospinal fluid as described above. Dictated by: Nasra Hernández M.D. Images and Report reviewed and interpreted by: Nasra Hernández M.D. <PS><Electronically signed by: Nasra Hernández M.D.> 04/24/2024 1201 [id number] us Damon Aguirre MD [facility] [place] FLUOROSCOPY ORDERABLES Fin al Result * Alzheimer's Disease Evaluation, CSF (REVIEW TEST PREP WITH PATIENT PRIOR TO ORDERING) (04/24/2024 10:20 AM EDT) Alzheimer's Disease Evaluation See Scanned report under Media Tab in Chart Review in Epic 04/26/2024 11:40 AM EDT [facility] Cerebrospinal Fluid CEREBROSPINAL FLUID SPECIMEN / Unknown 04/24/2024 10:20 AM EDT 04/24/2024 10:48 AM EDT Damon Aguirre MD GENETIC AND MALIGNANCY LABS Fi nal Result [facility] ([id number]) [address] [place] [address] [facility] [address] [place] [address] * Hold-CSF to Chemistry (04/24/2024 10:20 AM EDT) [facility] CSF to Hold Chemistry Specimen in lab 04/26/2024 4:28 AM EDT [facility] Cerebrospinal Fluid CEREBROSPINAL FLUID SPECIMEN / Unknown 04/24/2024 10:20 AM EDT 04/24/2024 10:48 AM EDT Damon Aguirre MD BODY FLUIDS AND STOOLS ORDERAB LES Final Result Performing Organization Address City/[facility]/ZIP Co de Phone Number [facility] ([id number]) [address] [place] [address] [facility] [address] [place] [address] * Protime-INR (04/24/2024 7:03 AM EDT) [facility] Prothrombin Time 11.6 10.3 - 13.3 s 04/24/2024 7:37 AM EDT [facility] Comment: (note) Anticoagulants may alter the results of Laboratory Coagulation assays. New-generation anticoagulants such as direct Thrombin inhibitors (Dabigatran/Pradaxa, Argatroban, Bivalrudin) and direct/indirect factor Xa inhibitors (Rivaroxaban/Xarelto,Apixaban/Eliquis, Danaparoid/Orgaran, Fondaparinux/Arixtra) have been shown to affect the results of Laboratory Coagulation assays, creating falsely elevated or decreased values. Correlation with medication history is advised. INR 1.1 INR 04/24/2024 7:37 AM EDT [facility] Comment: INR Therapeutic Ranges: Low Intensity Range: 2.0-3.0 High Intensity Range: 3.0-4.5 Plasma BLOOD SPECIMEN FROM PATIENT / Unknown 04/24/2024 7:03 AM EDT 04/24/2024 7:17 AM EDT us Nasra Hernández MD LAB BLOOD ORDERABLES Final Result Performing Organization Address City/[facility]/ZIP Co de Phone Number [facility] ([id number]) [address] [place] [address] [facility] [address] [place] [address] * SLEEP STUDY - EXTERNAL RESULT SCAN (02/26/2024) us Historical Provider SLEEP CENTER ORDERABLES Edit ed Result - Final Performing Organization Address City/[facility]/ZIP Co de Phone Number EXTERNAL * MRI/MRA - EXTERNAL RESULT SCAN (01/10/2024) Anatomical Region Laterality Modality Other us Provider Not In System IMG SCAN ORDERABLES Edite d Result - Final * EEG - EXTERNAL RESULT SCAN (01/10/2024) us Provider Not In System NEUROLOGY ORDERABLES Edit ed Result - Final * CT SCAN - EXTERNAL RESULT SCAN (11/16/2023) Anatomical Region Laterality Modality Other us Provider Not In System IMG SCAN ORDERABLES Edite d Result - Final * VASCULAR STUDY - EXTERNAL RESULT SCAN (09/28/2023) Anatomical Region Laterality Modality Other us Provider Not In System IMG SCAN ORDERABLES Edite d Result - Final Visit Diagnoses Diagnosis Start Date Mild cognitive impairment Mild cognitive impairment, so stated 04/11/2024 Mild cognitive impairment Mild cognitive impairment, so stated 04/24/2024 Mild cognitive impairment Mild cognitive impairment, so stated 07/18/2024 Mild cognitive impairment Mild cognitive impairment, so stated 09/28/2024 Mild cognitive impairment Mild cognitive impairment, so stated 10/12/2024 Mild cognitive impairment Mild cognitive impairment, so stated 10/19/2024 Mild cognitive impairment Mild cognitive impairment, so stated 10/26/2024 Mild cognitive impairment Mild cognitive impairment, so stated 11/09/2024 Mild cognitive impairment Mild cognitive impairment, so stated 11/18/2024 Mild cognitive impairment Mild cognitive impairment, so stated 11/23/2024 Mild cognitive impairment Mild cognitive impairment, so stated 12/07/2024 Mild cognitive impairment Mild cognitive impairment, so stated 12/14/2024 Mild cognitive impairment Mild cognitive impairment, so stated 12/21/2024 Mild cognitive impairment Mild cognitive impairment, so stated 01/04/2025 Mild cognitive impairment Mild cognitive impairment, so stated 01/18/2025 Mild cognitive impairment Mild cognitive impairment, so stated 02/01/2025 Mild cognitive impairment Mild cognitive impairment, so stated 02/15/2025 Mild cognitive impairment Mild cognitive impairment, so stated 03/01/2025 Mild cognitive impairment Mild cognitive impairment, so stated 03/15/2025 Mild cognitive impairment Mild cognitive impairment, so stated 03/24/2025 Mild cognitive impairment Mild cognitive impairment, so stated 03/29/2025 Mild cognitive impairment Mild cognitive impairment, so stated 04/12/2025 Mild cognitive impairment Mild cognitive impairment, so stated 04/26/2025 Mild cognitive impairment Mild cognitive impairment, so stated 04/26/2025 Mild cognitive impairment Mild cognitive impairment, so stated 05/10/2025 Mild cognitive impairment Mild cognitive impairment, so stated 05/24/2025 Mild cognitive impairment Mild cognitive impairment, so stated 06/07/2025 Care Teams Electrical Inspector Relationship Specialty Start Date End Date Wallace Garcia MD [address] [place] [address] [place] [address] PCP - General Internal Medicine 04/11/24 Marianne Monroy RN Nurse Navigator Neurology 07/24/24
--- OUTSIDE RECORDS SUMMARY | 2025-06-13 06:40 | XMS_ITS | Encounter Summary ---
Author Organization Healthcare Address [address] [place] [address] Care Team Providers Care Needle Punch Operator Name Role Phone Wallace Garcia MD Primary Care Provider [phone] Encounter Details Date Type Department Care Team (Latest Contact Info) Description 05/09/2025 Travel Social History Tobacco Use Types Packs/Day Years [...] on file documented as of this encounter Plan of Treatment Upcoming Encounters Date Type Department Care Team (Late st Contact Info) Description 01/17/2026 9:00 AM EDT Office Visit [facility] Room [address] [place] [address] Anna Segundo, DDS [address] [address] Bibi Guillen documented as of this encounter Visit Diagnoses Not on filedocumented in this encounter Additional Health Concerns Assessment Noted Time A Body Mass Index follow-up plan has been documented for the patient 05/10/2025 11:20 AM EDT documented as of this encounter Care Teams Needle Punch Operator Relationship Specialty Start Date End Date Wallace Garcia MD [address] [facility] [address] [place] [address] PCP - General 02/28/21 documented as of this encounter
--- OUTSIDE RECORDS SUMMARY | 2025-06-13 06:40 | XMS_ITS | Encounter Summary ---
Author Organization [facility] Address [address] [place] [address] Care Team Providers Care Jute Bag Cutting Machine Operator Name Role Phone Wallace Garcia MD Primary Care Provider [phone] Marianne Monroy RN Unavailable Unavailable Encounter Details Date Type Department Care Team (Late st Contact Info) Description 03/26/2025 Results Follow-Up [facility] Neurology [address] [facility] [address] [place] [address] [phone] Antoinette Gonzales PA-C [address] [facility] [place] [address] [place] [address] [id number] MRI Brain Wo Contrast Social History Tobacco Use Types Packs/Day Years [...] Assessment Author Yes 11/09/2024 2:14 PM Diana Olivares, TOD * Do You Have Serious Difficulty Walking [...] Diana Olivares RN documented in this encounter Plan of Treatment Upcoming Encounters Date Type Department Care Team (Late st Contact Info) Description 06/21/2025 3:00 PM EDT Infusion [address] [phone] Antoinette Gonzales PA-C [address] [place] [address] [phone] 07/05/2025 3:30 PM EDT Infusion [address] [phone] Antoinette Gonzales PA-C [address] [place] [address] [phone] 07/19/2025 2:30 PM EDT Infusion [address] [phone] Antoinette Gonzales PA-C [address] [place] [address] [id number] 08/02/2025 1:30 PM EDT Infusion [address] [address] Antoinette Gonzales PA-C [address] [facility] [address] [place] [address] [id number] 08/16/2025 2:30 PM EDT Infusion [address] [phone] Antoinette Gonzales PA-C [address] [place] [address] [place] [address] [id number] 08/30/2025 2:30 PM EST Infusion [address] [address] Antoinette Gonzales PA-C [address] [place] [address] [place] [address] [id number] 09/27/2025 2:30 PM EST Infusion [address] [address] 10/25/2025 12:30 PM EST Office Visit [facility] Neurology [address] [place] [address] [place] [address] [phone] Antoinette Gonzales PA-C [address] [place] [address] [id number] 10/25/2025 2:30 PM EST Infusion [address] [phone] 11/08/2025 2:30 PM EST Infusion [address] [phone] 11/22/2025 2:30 PM EST Infusion [address] [address] 12/06/2025 2:30 PM EST Infusion [facility] [address] [place] [address] 12/20/2025 2:30 PM EST Infusion [facility] [address] [place] [phone] 01/03/2026 2:30 PM EDT Infusion [address] [address] 01/17/2026 2:30 PM EDT Infusion [address] [phone] 01/31/2026 2:30 PM EDT Infusion [address] [address] 02/14/2026 2:30 PM EDT Infusion [address] [address] 02/28/2026 2:30 PM EDT Infusion [facility] [address] [place] [phone] 03/14/2026 2:30 PM EDT Infusion [facility] [address] [place] [phone] 03/28/2026 2:30 PM EDT Infusion [address] [address] 04/11/2026 2:30 PM EDT Infusion [facility] [address] [place] [phone] 04/25/2026 2:30 PM EDT Infusion [facility] [address] [place] [phone] documented as of this encounter Visit Diagnoses Not on filedocumented in this encounter Care Teams Jute Bag Cutting Machine Operator Relationship Specialty Start Date End Date Wallace Garcia MD [address] [place] [address] PCP - General Internal Medicine 04/11/24 Marianne Monroy RN Nurse Navigator Neurology 07/24/24 documented as of this encounter
--- OUTSIDE RECORDS SUMMARY | 2025-06-13 06:40 | XMS_ITS | Encounter Summary ---
Author Organization Healthcare Address [address] [place] [address] Care Team Providers Care Podiatrist Name Role Phone Wallace Garcia MD Primary Care Provider [phone] Reason for Referral * Consultation (Routine) - Closed Specialty Diagnoses / Procedures Referred By Contac t Referred To Contact Dentist / Pain Medicine Diagnoses Obstructive sleep apnea (adult) (pediatric) Ina Trejo MD [address] [place] [address] Phone: tel: fax: Anna Segundo, DDS [address] [place] [address] Phone: tel: fax: Referral ID Status Reason Start Date Expiration Date Visits Re quested Visits Authorized [id number] Closed 07/28/2024 01/27/2026 1 1 Encounter Details Date Type Department Care Team (Late st Contact Info) Description 07/28/2024 Community Orders Community [facility] [address] [place] [address] Ina Trejo MD [address] [place] [address] [place] [address] Obstructive sleep apnea (adult) (pediatric) (Primary Dx) [...] Description 01/17/2026 9:00 AM EDT Office Visit [place] [facility] Room [address]214 [address] [place] [address] Anna Segundo, DDS [address] [place] [address] Bibi Guillen Scheduled Referrals Name Type Priority Associated Diagnoses Order Schedule Ambulatory Referral to Orofacial Pain Outpatient Referral Routine Obstructive sleep apnea (adult) (pediatric) Expected: 07/28/2024 (Approximate), Expires: 01/26/2026 documented as of this encounter Visit Diagnoses Diagnosis Obstructive sleep apnea (adult) (pediatric)- Primary documented in this encounter Care Teams Podiatrist Relationship Specialty Start Date End Date Wallace Garcia MD [address] [facility] [address] [place] [address] PCP - General 02/28/21 documented as of this encounter
--- OUTSIDE RECORDS SUMMARY | 2025-06-13 06:40 | XMS_ITS | Clinical Summary ---
Author Organization [facility] Address [address] [place] [address] Care Team Providers Care Electric Welder Name Role Phone Wallace Garcia MD Primary Care Provider [phone] Allergies No known active allergies Medications atorvastatin (LIPITOR) 80 MG tablet Take 80 mg by mouth Every Night. Active folic acid (FOLVITE) 400 MCG tablet Take 400 mcg by mouth Daily. Active losartan (COZAAR) 100 MG tablet Take 100 mg by mouth Every Morning. Active Turmeric 500 MG capsule Take 500 mg by mouth Daily. Active clopidogrel (PLAVIX) 75 MG tablet Take 75 mg by mouth Daily. INSTRUCTED TO STOP 5-7 DAYS PRIOR TO PROCEDURE. Active Multiple Vitamins-Minera ls (CENTRUM SILVER 50+MEN) tablet Take 1 tablet by mouth Daily. Active aspirin 81 MG EC tablet Take 1 tablet by mouth Daily. Resume in 1 month 0 Active aspirin 325 MG tablet Take 1 tablet by mouth Daily. For 1 month 30 tablet 05/28/2020 11:29 AM EDT 0 Active docusate sodium (Colace) 100 MG capsule Take 1 capsule by mouth 2 (Two) Times a Day. 60 capsule 05/28/2020 11:29 AM EDT 0 Active Active Problems Problem Noted Date Diagnosed Date Leukocytosis, likely reactive 05/28/2020 Acute blood loss anemia, asymptomatic 05/28/2020 Acute postoperative pain 05/28/2020 Hyponatremia, mild 05/28/2020 Arthritis of left hip 05/27/2020 HTN (hypertension) 05/27/2020 CAD (coronary artery disease), history of stent x4 05/27/2020 Hyperlipidemia 05/27/2020 Status post total hip replacement, left anterior 05/27/2020 Social History Tobacco Use Types Packs/Day Years Used Date Smoking Tobacco: Never Smokeless Tobacco: Never Alcohol Use Standard Drinks/Week Comments Never 0 (1 standard drink = 0.6 oz pur e alcohol) AUDIT-C Answer Date Recorded Frequency of Alcohol Consumption Never 12/14/2019 Average Number of Drinks Not on file 020 Frequency of Binge Drinking Not on file 11/19 Abuse Screen Answer Date Recorded Unsafe at Home or Work/School Not on file Feels Threatened by Someone? Not on file 09/2023 Does Anyone Keep You from Co ntacting Others or Doint Things Outside the Home? Not on file 07/29/2023 Physical Sign of Abuse Present Not on file 1 Housing Stability Answer Date Recorded Current Living Arrangements Not on file 07/18 Potentially Unsafe Housing Conditions Not on nadia e 07/29/2023 Family and Community Support Answer Rodney e Recorded Help with Day-to-Day Activities Not on file 07/29/2023 Lonely or Isolated Not on file 07/29/2023 Employment Answer Date Recorded Do you want help finding or keeping work or a jefe b? Not on file 07/29/2023 Disabilities Answer Date Recorded Concentrating, Remembering, or Making Decisions Difficulty Not on file 07/29/2023 Doing Errands Independently Difficulty Not on fi le 07/29/2023 Education Answer Date Recorded Help with school or training? Not on file Preferred Language Not on file 07/29/2023 Sex and Gender Information Value Date Recorded Sex Assigned at Not on file Legal Sex Male 12:31 PM EST Gender Identity Not on file Sexual Orientation Not on file Last Filed Vital Signs Vital Sign Reading Time Taken Comments Blood Pressure 108/63 05/28/2020 11:34 AM EDT Pulse 96 05/28/2020 11:34 AM EDT Temperature 36.8 C (98.3 F) 05/28/2020 11:34 AM EDT Respiratory Rate 16 05/28/2020 11:34 AM EDT Oxygen Saturation 95% 05/28/2020 11:34 AM EDT Inhaled Oxygen Concentration - - Weight 88 kg (194 lb) 05/27/2020 10:28 AM EDT Height 180.3 cm (5' 11 ) 05/27/2020 10:28 AM EDT Body Mass Index 27.06 05/27/2020 10:28 AM EDT Plan of Treatment Health Maintenance Due Date Last Done Comments LIPID PANEL 1950 TDAP/TD VACCINES (1 - Tdap) 1970 COLOGUARD 01/26/1996 COLON CANCER SCREENING 5 YEAR SIGMOIDOSCOPY 01/26/1996 COLONOSCOPY 01/26/1996 COLORECTAL CANCER SCREENING 01/26/1996 CT COLONOGRAPHY 01/26/1996 FECAL OCCULT BLOOD TEST 01/26/1996 FIT Testing (1 year) 01/26/1996 ZOSTER VACCINE (1 of 2) 2001 AAA SCREEN ONCE 01/26/2016 Pneumococcal Vaccine 50+ (2 of 2 - PPSV23) 10/13/2019 10/13/2018 ANNUAL PHYSICAL 12/14/2019 HEPATITIS C SCREENING 12/14/2019 COVID-19 Vaccine ( season) 2024 INFLUENZA VACCINE 07/18/2025 Medical Devices Implanted Type Area Live In Companion Device Identifier Shelf Expiration Date Model / Serial / Lot Shll Acet R3 3h Std 60mm - [id number] Implanted:Qty: 1 on 05/27/2020 by Bao Alvarado MD at [facility] Implant Left: Hip HELMS AND NEPHEW 05/20/2029 [id number] / / [id number] Scrw Sph Hd Reflection 6.5x20mm - [id number] Implanted:Qty: 1 on 05/27/2020 by Bao Alvarado MD at [facility] Implant Left: Hip HELMS AND NEPHEW 12/19/2029 [id number] / / [id number] Liner Acet R3 Xlpe 0d [id number] - [id number] Implanted:Qty: 1 on 05/27/2020 by Bao Alvarado MD at [facility] Implant Left: Hip HELMS AND NEPHEW 10/21/2029 [id number] / / [id number] Stem Fem/Hip Polarstem W/Colr Std Sz3 - [id number] Implanted:Qty: 1 on 05/27/2020 by Bao Alvarado MD at [facility] Implant Left: Hip HELMS AND NEPHEW 11/29/2026 [id number] / / [id number] Hd Fem Oxinium Tpr 12 14 36mm Pls0 - [id number] Implanted:Qty: 1 on 05/27/2020 by Bao Alvarado MD at [facility] Implant Left: Hip HELMS AND NEPHEW 08/22/2029 [id number] / / [id number] Totl Hip Dennis Helms Nephew - [id number] Implanted:Qty: 1 on 05/27/2020 by Bao Alvarado MD at [facility] Implant Left: Hip HELMS AND NEPHEW CAPHIPTOTAL SN2 / / Insurance [facility] MEDIC[facility] REPLACE Advance Directives * CPR (Attempt to Resuscitate) (Latest Code Status on File) Date Activated Date Inactivated Comments 05/27/2020 3:58 PM 05/28/2020 3:54 PM Question Answer Comments Code Status (Patient has no pulse and is not breathing): CPR (Attempt to Resuscitate) Medical Interventions (Patie nt has pulse or is breathing): Full Care Teams Electric Welder Relationship Specialty Start Date End Date Wallace Garcia MD [address] [facility] [address] [place] [address] PCP - General Internal Medicine 12/14/19
--- OUTSIDE RECORDS SUMMARY | 2025-06-13 06:40 | XMS_ITS | Clinical Summary ---
Author Organization Healthcare Address [address] [place] [address] Care Team Providers Care Assistant Professor Of Psychology Name Role Phone Wallace Garcia MD Primary Care Provider [phone] Allergies No known active allergies Medications TURMERIC PO Take 500 mg by mouth 1 (one) time each day. Active tamsulosin (Flomax) 0.4 MG 24 hr capsule Active rosuvastatin (Crestor) 20 MG tablet Active Multiple Vitamins-Mineral s (Centrum Silver 50+Men) tablet Take 1 tablet by mouth 1 (one) time each day. Active memantine (Namenda) 10 MG tablet Take 1 tablet (10 mg) by mouth twice a day. 07/18/2024 Active losartan (Cozaar) 100 MG tablet Take 1 tablet (100 mg) by mouth 1 (one) time each day. Active donepezil (Aricept) 5 MG tablet Take 1 tablet (5 mg) by mouth 1 (one) time each day. 04/27/2024 Active clopidogrel (Plavix) 75 MG tablet Take 1 tablet (75 mg) by mouth 1 (one) time each day. Active atorvastatin (Lipitor) 80 MG tablet Take 1 tablet (80 mg) by mouth 1 (one) time each day. Active Apoaequorin (Prevagen) 10 MG capsule Take by mouth. 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 10/19/2022 Acute blood loss anemia 05/28/2020 Arthritis of left hip 05/27/2020 CAD (coronary artery disease) 05/27/2020 HTN (hypertension) 05/27/2020 Hyperlipidemia 05/27/2020 Encounters Date Type Department Care Team Description 05/09/2025 4:00 PM EDT Office Visit [facility] Orofacial Pain Clinic O[facility]facial Pain Clinic [facility] Room E[address] [place] [address] Anna Segundo DDS Obstructive sleep apnea (adult) (pediatric) (Primary Dx) 05/09/2025 Travel 03/29/2025 12:00 PM EDT Office Visit [facility] O[facility]facial Pain Clinic O[facility]facial Pain Clinic [facility] Room E2[facility] [place] [address] Anna Segundo DDS Chakarvarty, Mridul Obstructive sleep apnea (adult) (pediatric) (Primary Dx) 03/29/2025 Travel from Last 3 Months Family History Medical History Relation Name Comments Heart disease Brother 1 Brad Buckley Intellectual Disability Brother 2 Wallace Buckley Heart disease Father Osvaldo Buckley Heart disease Mother Ellen Buckley Heart disease Sister 1 Jinny Dille Heart disease Sister 2 Iris Dai Heart disease Sister 3 Elise Sahu Intellectual Disability Sister 4 eParl [place] Relation Name Status Comments Brother 1 Brad [place] Brother 2 Wallace Buckley Father Osvaldo Buckley Mother Ellen Buckley Sister 1 Jinny Avelarchie Sister 2 Iris Dai Sister 3 Elise Sahu Sister 4 Pearl [place] Social History Tobacco Use Types Packs/Day Years Used Date Smoking Tobacco: Never Smokeless Tobacco: Never Tobacco Cessation:Counseling Given: Not Answered Alcohol Use Standard Drinks/Week Comments Never 0 [...] Mass Index 27.67 05/09/2025 4:44 PM EDT Plan of Treatment Upcoming Encounters Date Type Department Care Team (Late st Contact Info) Description 01/17/2026 9:00 AM EDT Office Visit [facility]facial [facility] Clinic [facility] Room E214 [address] [place] [address] Anna Segundo, S [address] [place] [address] Bibi Guillen Health Maintenance Due Date Last Done Comments Dental Oral Exam 1950 Dental Prophylaxis 1950 Dental X-Ray: Bitewings 1950 Dental X-Ray: Full Mouth 1950 [facility]-Depression Screening 1950 [facility]-Hepatitis C Screening 1950 [facility]-Medicare Annual Wellness (AWV) 1950 [facility]-Infant/Child/Adol SDOH Screenings 1950 [facility]- SDOH Screenings 1969 [facility]-Adult SDOH Screenings 1969 [facility]-DTaP,Tdap,and Td Vaccines (1 - Tdap) 1970 CT Colonography 01/26/1996 Colonoscopy 01/26/1996 FIT-DNA 01/26/1996 FIT 01/26/1996 FOBT 01/26/1996 Sigmoidoscopy 01/26/1996 [facility]-Colorectal Cancer Screening 01/26/1996 [facility]-Zoster Vaccines (1 of 2) 2001 [id number] Vaccine (6 - season) 2024 08/11/2023, 08/17/2022, 08/20/2021, Additional history exists [facility]-Influenza Vaccine (#1) 2025 09/21/2024 [facility]-Hepatitis A Vaccines Aged Out 04/14/2019, 09/18 No longer eligible based on patient's age to complete this topic [facility]-Pneumococcal Vaccine: 50+ Years Completed 05/17/2024, 10/13/2018 [facility]-RSV Vaccine: 60+ Years or Completed 05/17/2024 [facility]-Obesity Intervention Completed 025, 03/29/2025, 03/01/2025, Additional history exists HPV Vaccines Aged Out No longer eligi ble based on patient's age to complete this topic [facility]-HIB Vaccines Aged Out No longer e ligible based on patient's age to complete this topic [facility]-IPV Vaccines Aged Out No longer e ligible based on patient's age to complete this topic [facility]-Rotavirus Vaccines Aged Out No lo nger eligible based on patient's age to complete this topic Insurance [facility] MEDICARE Care Teams Assistant Professor Of Psychology Relationship Specialty Start Date End Date Wallace Garcia MD [address] [facility] [address] [place] [address] PCP - General 02/28/21
== END ==
LOC: SL 06:38
PROVIDERS: PCP Specialist; Visit Provider Specialist
DX: G47.33 Obstructive sleep apnea (adult) (pediatric) (principal); G47.36 Sleep related hypoventilation in conditions classified elsewhere
CPT/HCPCS: G0399